=== PATIENT | female | born 1955 | race Two or more races ===

== ENCOUNTER 2025-04-27 08:20 | Outpatient (AMB) | payer OTHER, SELFPAY ==
--- OUTSIDE RECORDS SUMMARY | 2024-03-26 06:30 | XMS_ITS | Encounter Summary ---
Author Organization [employer] Address [address] [place] [address] Care Team Providers Care Radioactivity Technician Name Role Phone Niurka Aparicio MD Primary Care Prov ider Encounter Details Date Type Department Care Team (Late st Contact Info) Description 03/26/2024 7:30 AM EDT Hospital Encounter TH HISTORIC ENCOUNTERS EASTERN CONVERSION ONLY Darrin Leyva DO [address] [facility] [address] [place] [address] Social History Tobacco Use Types Packs/Day Years Used Date Smoking Tobacco: Never Smokeless Tobacco: Never Alcohol Use Standard Drinks/Week Comments No 0.8 (1 standard drink = 0.6 oz p ure alcohol) rarely Housing Instability Answer Date Recorde d Are you worried that in the next 2 months you may not have stable housing? No 12/07/2024 Food Access & Nutrition Answer Date Rec orded Do you have access to a vari ety of food including fruits and vegetables? Yes 12/07/2024 Access to Healthcare Answer Date Record ed Within the last 3 months, ho w many times did you visit the emergency department for your medical care? 1 12/07/2024 Health Literacy Answer Date Recorded How often do you need to hav e someone help you when you read instructions, pamphlets, or other written material from your doctor or pharmacy? Never 12/07/2024 Caregiver: How often do you need to have someone help you when you read instructions, pamphlets, or other written material from your doctor or pharmacy? Not on file 12/07/2024 Financial Risk Answer Date Recorded How hard is it for you to pa y for the very basics like food, housing, medical care, and air conditioning / heating? Not very hard 12/07/2024 Transportation Answer Date Recorded Has the lack of transportati on kept you from meetings, work, or from getting things needed for daily living? No Has the lack of transportati on kept you from medical appointments or from getting medications? No 12/07/2024 Social Isolation Answer Date Recorded How often do you feel lonely or isolated from th ose around you? Never 12/07/2024 Food Risk Answer Date Recorded Within the past 12 months we worried whether our food would run out before we got money to buy more. Never true 12/07/2024 Within the past 12 months th e food we bought just didn't last and we didn't have money to get more. Never true 12/07/2024 Dependent Care Answer Date Recorded Do you need help finding or paying for care for your loved ones. For example, child caregiver or elderly care for an older adult? No 12/07/2024 Education Answer Date Recorded Do you think completing more education or training, like finishing a GED, going to college, or learning a trade, would be helpful for you? No 12/07/2024 Employment and Income Answer Date Recor ded During the last four weeks, have you been actively looking for work? No 12/07/2024 Living Situation Answer Date Recorded What is your living situation? Unrecognized valu e 12/07/2024 Interpersonal Safety Answer Date Record ed Physical Abuse Unrecognized value 06/19/2024 Verbal Abuse Unrecognized value 06/19/2024 Comments No Sex and Gender Information Value Date Recorded Sex Assigned at Not on file Legal Sex Female 1:59 PM EST Gender Identity Not on file Sexual Orientation Not on file documented as of this encounter Plan of Treatment Upcoming Encounters Date Type Department Care Team (Late st Contact Info) Description 04/30/2025 2:00 PM EST Office Visit Adult Medicine - [place] [address] [place] [address] Niurka Aparicio MD [address] [place] [address] 08/05/2025 9:45 AM EST Office Visit Bariatric Surgery - [address] [place] [phone] Bijan Mcwilliams MD [address] [place] [address] documented as of this encounter Visit Diagnoses Not on filedocumented in this encounter Care Teams Radioactivity Technician Relationship Specialty Start Date End Date Niurka Aparicio MD [address] [place] [address] PCP - General Internal Medicine 06/03/12 documented as of this encounter
--- OUTSIDE RECORDS SUMMARY | 2025-04-26 07:03 | XMS_ITS | Encounter Summary ---
Author Organization [employer] Address [address] [place] [address] Care Team Providers Care Clinical Programmer Name Role Phone Niurka Aparicio MD Primary Care Prov ider Reason for Referral * Imaging (Routine) - Authorized Specialty Diagnoses / Procedures Referred By Contac t Referred To Contact Radiology Diagnoses Encounter for screening mammogram for breast cancer Procedures MG Mammo Digital Screening w Pete bilat [facility], Self Referral [facility] Referral ID Status Reason Start Date Expiration Date V isits Requested Visits Authorized [id number] Authorized 04/19/2025 04/19/2026 1 1 * Imaging (Routine) - Authorized Specialty Diagnoses / Procedures Referred By Contac t Referred To Contact Radiology Diagnoses Encounter for screening mammogram for breast cancer Procedures MG Mammo Digital Screening w Pete bilat [facility], Self Referral [facility] [place] Referral ID Status Reason Start Date Expiration Date V isits Requested Visits Authorized [id number] Authorized 04/19/2025 04/19/2026 1 1 Reason for Visit * Imaging (Routine) - Authorized Specialty Diagnoses / Procedures Referred By Contac t Referred To Contact Radiology Diagnoses Encounter for screening mammogram for breast cancer Procedures MG Mammo Digital Screening w Pete bilat [facility], Self Referral [facility] [place] Referral ID Status Reason Start Date Expiration Date V isits Requested Visits Authorized [id number] Authorized 04/19/2025 04/19/2026 1 1 Encounter Details Date Type Department Care Team (Latest Contact Info) Description 04/26/2025 7:03 AM EST - 04/26/2025 11:59 PM [facility] Hospital Encounter [facility] [address] [address] Encounter for screening mammogram for breast cancer Discharge Disposition: Home or Self Care Social History Tobacco Use Types Packs/Day Years [...] care for your loved ones. For example, manager child or elderly care for an older adult? [...] on file documented as of this encounter Last Filed Vital Signs Vital Sign Reading Time Taken Comments Blood Pressure - - Pulse - - Temperature - - Respiratory Rate - - Oxygen Saturation - - Inhaled Oxygen Concentration - - Weight 74.8 kg (165 lb) 04/26/2025 7:20 AM EST Height 165.1 cm (5' 5 ) 04/26/2025 7:20 AM EST Body Mass Index 27.46 04/26/2025 7:20 AM EST documented in this encounter Medications at Time of Discharge albuterol HFA (PROAIR HFA ; PROVENTIL HFA ; VENTOLIN HFA) 90 mcg/actuation inhaler INHALE 2 PUFFS INTO THE LUNGS FOUR TIMES DAILY NEEDED FOR COUGH OR WHEEZING 11/16/2022 cholecalciferol (VITAMIN D-3) 10 mcg (400 unit) tablet Take 1 tablet (400 Units total) by mouth 1 (one) time each day. clonazePAM (KlonoPIN) 0.5 mg tablet Take 1 tablet (0.5 mg total) by mouth. 11/29/2020 diclofenac (VOLTAREN) 1 % topical gel Apply 4 g topically. 09/11/2023 docusate sodium (Colace) 100 mg capsule Take 1 capsule (100 mg total) by mouth. 07/17/2017 fluticasone propionate (FLONASE) 50 mcg/actuation nasal spray Administer 1 spray into each nostril 1 (one) time each day. 06/05/2022 labetaloL (NORMODYNE) 100 mg tablet Take 1 tablet (100 mg total) by mouth 2 (two) times a day. 180 tablet 1 10/09/2024 lisinopriL (PRINIVIL,ZESTRIL) 20 mg tabletIndications: Primary hypertension Take 1 tablet (20 mg total) by mouth 1 (one) time each day. 90 each 1 2025 6 ondansetron (ZOFRAN) 4 mg tablet Take 1 tablet (4 mg total) by mouth every 8 (eight) hours if needed. 03/12/2024 oxyCODONE-acetamin ophen (PERCOCET) 5-325 mg per tablet Take 1 tablet by mouth every 6 (six) hours if needed for severe pain. pantoprazole (PROTONIX) 40 mg EC tablet Take 1 tablet (40 mg total) by mouth 1 (one) time each day before breakfast. Do not crush, chew, or split. 90 tablet 03/23/2025 rOPINIRole XL (REQUIP XL) 2 mg 24 hr tablet Take 1 tablet (2 mg total) by mouth. semaglutide (Ozempic) 2 mg/dose (8 mg/3 mL) injection penIndications:Ove r weight Inject 2 mg under the skin every 7 (seven) days. 3 mL 5 02/02/2025 6 zolpidem (AMBIEN) 10 mg tablet Take 1 tablet (10 mg total) by mouth. documented as of this encounter Discharge Disposition Disposition Code Departure Means Destination Home or Self Care documented in this encounter Plan of Treatment Upcoming Encounters Date Type Department Care Team (Late st Contact Info) Description 04/30/2025 2:00 PM EST Office Visit Adult Medicine - [place] [address] [place] [phone] Niurka Aparicio MD [address] [place] [address] 08/05/2025 9:45 AM EST Office Visit Bariatric Surgery - [address] [address] Bijan Mcwilliams MD [address] [place] [phone] documented as of this encounter Procedures Procedure Name Priority Date/Time Associated Diagnosis Comments MG MAMMO DIGITAL SCREENING W PETE BILAT Routine 04/26/2025 7:28 AM EST Encounter for screening mammogram for breast cancer documented in this encounter Results * MG Mammo Digital Screening w Pete bilat (04/26/2025 7:28 AM EST) Anatomical Region Laterality Modality Breast Bilateral Mammography 04/26/2025 7:39 AM EST Impressions 04/26/2025 8:34 AM EST No mammographic evidence of malignancy. No suspicious interval change. A negative mammogram in the presence of a clinically suspicious palpable abnormality does not preclude the possibility of malignancy or alter the indications for biopsy. ASSESSMENT: BI-RADS 1: NEGATIVE RECOMMENDATION(S): 1: Routine screening mammogram BILATERAL in 1 year. [facility] [address], [address] -------- FINAL REPORT -------- Dictated By: Dionicio Gómez Dictated Date: 04/26/2025 07:39 ET Assigned Physician: Dionicio Gómez Reviewed and Electronically Signed By: Dionicio Gómez Signed Date: 04/26/2025 08:34 ET Workstation ID: [id number] Transcribed By: Self Edit Transcribed Date: 04/26/2025 07:50 ET Narrative 04/26/2025 8:34 AM EST EXAM: SCREENING MAMMOGRAPHY, BILATERAL HISTORY: SCREENING. Family history of breast cancer, sister diagnosed age 50. COMPARISON: 08/24/23, 07/11/22, 07/04/21 TECHNIQUE: Synthesized CC and MLO projections of each breast. Tomosynthesis of each breast in the CC and MLO projections. ADDITIONAL IMAGING: None Computer-aided detection was employed with the iCAD ProFound AI 3-D. TISSUE DENSITY: There are scattered areas of fibroglandular density. (BI-RADS category B) FINDINGS: RIGHT BREAST: No suspicious mass. No suspicious calcification. No distortion. No additional suspicious right breast findings LEFT BREAST: No suspicious mass. No suspicious calcification. No distortion. No additional suspicious left breast findings Procedure Note Dionicio Gómez MD - 04/26/2025 EXAM: SCREENING MAMMOGRAPHY, BILATERAL HISTORY: SCREENING. Family history of breast cancer, sister diagnosedage 50. COMPARISON: 08/24/23, 07/11/22, 07/04/21 TECHNIQUE: Synthesized CC and MLO projections of each breast.Tomosynthesis of each breast in the CC and MLO projections. ADDITIONAL IMAGING: None Computer-aided detection was employed with the [employer]phis Vape AI 3-D. TISSUE DENSITY: There are scattered areas of fibroglandular density.(BI-RADS category B) FINDINGS: RIGHT BREAST: No suspicious mass. No suspicious calcification. No distortion. Noadditional suspicious right breast findings LEFT BREAST: No suspicious mass. No suspicious calcification. No distortion. Noadditional suspicious left breast findings IMPRESSION: No mammographic evidence of malignancy. No suspicious interval change. A negative mammogram in the presence of a clinically suspicious palpableabnormality does not preclude the possibility of malignancy or alter theindications for biopsy. ASSESSMENT: BI-RADS 1: NEGATIVE RECOMMENDATION(S): 1: Routine screening mammogram BILATERAL in 1 year. [facility] location[facility] [address], [address] -------- FINAL REPORT -------- Dictated By: Dionicio Gómez Dictated Date: 04/26/2025 07:39 ET Assigned Physician: Dionicio Gómez Reviewed and Electronically Signed By: Dionicio Gómez Signed Date: 04/26/2025 08:34 ET Workstation ID: [id number] Transcribed By: Self Edit Transcribed Date: 04/26/2025 07:50 ET us Self Referral [facility] IMG BI PROCEDURES Final Resul t documented in this encounter Visit Diagnoses Diagnosis Encounter for screening mammogram for breast cancer documented in this encounter Additional Health Concerns Assessment Noted Time PHQ-9 Depression Total Score: 0 12/08/19 25 9:21 AM EDT documented as of this encounter Care Teams Clinical Programmer Relationship Specialty Start Date End Date Niurka Aparicio MD [address] [place] [address] PCP - General Internal Medicine 06/03/12 documented as of this encounter
[2025-04-27 08:24] VITALS: BMI 27.5
--- NOTE | 2025-04-27 08:24 | A.PHYSOV_ITS ---
Vital Signs 04/27/25 08:24 Height 5 ft 5 in Weight 165 lb BMI 27.5 Intake Visit Reasons: MRI followup Intake Note: 71 year old female who is here for her 1 month follow up x-rays of cervical and lumbar were ordered but only cervical was done. Her results are in chart Insulation Applicator Required: No Allergies No Known Allergies Allergy (Verified 04/27/25 08:26) HPI Comments Details: History of Present Illness The patient is a 70-year-old female presenting with persistent neck and lower back pain. She has been on oxycodone 5 mg four times a day as needed, which provides a 40 to 50% reduction in pain, improving her quality of life and allowi ng her to work. She reports muscle cramping in the lower extremities, which has improved with magnesium, vitamin B100 complex, CoQ10, and turmeric supplementation. Despite these interventions, cramps are still present but less frequent. The patient has experienced excellent results with sacroiliac joint injections. However, she is now experiencing increasing neck pain, right scapular and arm pain, with associated numbness and tingling in the right upper extremity. She has been performing physician-guided home cervical stretching exercises. Cervical spine x-rays from May 09, 2022, and updated x-rays from April 19, 2025, were reviewed, showing evidence of previous C5 through C7 anterior cervical discectomy and fusion with anterior plating, reversal of cervical lordosis, and a fractured screw at the C7 level. She was doing physician guided home exercises. Unfortunately continues to report persistent pain in her right arm. She also reports pain in her right shoulder with overhead activities. Right shoulder injections in the past provided good benefits. Neck and right arm pain is rated 8/10. We are in the process of getting her approved for repeat sacroiliac joint injections. Pain Description - Onset: Persistent neck and lower back pain - Quality: Pain reduced by 40 to 50% with medication - Location: Neck, lower back, right scapular, and arm - Radiation: Right scapular and arm pain - Exacerbating factors: Not explicitly mentioned - Relieving factors: Oxycodone, SI joint injections, supplements - Interference: Pain impacts quality of life and work ability Results - Imaging: Cervical spine x-rays from May 09, 2022, and April 19, 2025, showing C5 through C7 anterior cervical discectomy and fusion, reversal of cervical lordosis, and fractured screw at C7 [facility] Medical History (Updated 04/27/25 @ 09:08 by Darrin Leyva DO) Sacroiliac dysfunction Surgical History (Updated 04/27/25 @ 08:27 by Jordyn Gerber MA) H/O gastric sleeve (Unknown) Social History (Updated 04/27/25 @ 08:28 by Jordyn Gerber MA) Household Members: Spouse and None Alcohol intake: current Alcohol intake frequency: does not drink Patient Tobacco Use Status: Never used Tobacco Current occupational status: retired Review of Systems Narrative Review of Systems - Musculoskeletal: Reports persistent neck and lower back pain, right scapular and arm pain - Neurological: Reports numbness and tingling in the right upper extremity Right shoulder pain, denies change in bowel bladder habits, denies fever or chills, denies uncontrolled depression or suicidal ideation. Physical Exam Exam Exam: Physical Exam Patient appears to be in no acute distress, appropriately conversant and oriented. She was able to ambulate without antalgia. She was able to perform heel walk and toe walk. Neurologic examination of upper and lower extremities was nonfocal. Positive Dexter and Neer signs in the right shoulder. Spurling maneuver was positive on the right side. Lhermitte sign was negative. Patient demonstrated no upper motor neuron signs. SI provocative maneuvers were positive bilaterally including SI compression test, [place] and fibere signs. Dural tension signs were negative. She was able to perform heel walk and toe walk with support for balance. Vital Signs: BMI result Body Mass Index 27.5 Office Procedures AMB Shoulder Injection AMB Shoulder Injection Procedure Details: After informed consent was obtained, posterior aspect of the right shoulder was prepped with Betadine. 1.5 in 22 gauge hypodermic needle was introduced percutaneously and advanced into the subacromial area. After negative aspiration for blood total volume of 6 cc containing 40 mg of triamcinolone and 2% lidocaine was injected without resistance. Patient tolerated procedure very well without complications with excellent anesthetic response. Shoulder Injection - : Right All charges added?: Procedure code (CPT) selection complete Office Meds Kenalog 40 mg/mL suspension for injection Performing Provider: Darrin Leyva DO [place] [facility] [place] [facility] Administered by: Darrin Leyva DO on 04/27/25 09:00 Dose Route Admin Location Dispensed Lot Number Expiration Date [facility] Religion Instructor 40 mg intra-articular 1 mL [id number] [employer] Total Dispensed Waste 1 mL 0 % lidocaine (PF) 20 mg/mL (2 %) injection solution Performing Provider: Darrin Leyva DO Performing Location: [facility] Administered by: Darrin Leyva DO on 04/27/25 09:00 Dose Route Admin Location Dispensed Lot Number Expiration Date [facility] Religion Instructor 80 mg intra-articular 4 mL [id number] Total Dispensed Waste 4 mL 0 % Assessment & Plan Assessment & Plan (1) Cervical radiculitis: Code(s): M54.12 - Radiculopathy, cervical region Category: Medical (2) Neck pain: Code(s): M54.2 - Cervicalgia Category: Medical (3) Rotator cuff impingement syndrome of right shoulder: Code(s): M75.41 - Impingement syndrome of right shoulder Category: Medical (4) Sacroiliac dysfunction: Code(s): M53.3 - Sacrococcygeal disorders, not elsewhere classified Category: Medical (5) Sacroiliac inflammation: Code(s): M46.1 - Sacroiliitis, not elsewhere classified Category: Medical Plan Pain Management - Affect: Pain impacts quality of life positively with medication - Analgesia: Oxycodone 5 mg four times a day as needed, 40 to 50% pain reduction - Adverse Effects: Not explicitly mentioned - Activities of Daily Living: Able to work, improved quality of life - Aberrant Drug Related Behaviors: None reported Plan Patient was informed and verbally consented to the use of an ambient scribe for clinic note documentation during this visit. 1. Chronic Neck Pain The patient will continue with oxycodone 5 mg four times a day as needed for pain management, which has been effective in reducing pain by 40 to 50%. A cervical spine MRI has been ordered to further evaluate the cause of the increasing neck pain and associated symptoms. 2. Chronic Lower Back Pain The patient has experienced excellent results with sacroiliac joint injections, which will be considered for future management. 3. Muscle Cramps In Lower Extremities The patient will continue with magnesium, vitamin B100 complex, CoQ10, and turmeric supplementation, which have improved the frequency of cramps. 4. Right Scapular And Arm Pain The patient will undergo a cervical spine MRI to assess the cause of the right scapular and arm pain, along with numbness and tingling in the right upper extremity. Discussion Notes During the visit, we discussed the continuation of oxycodone for pain management, which has been effective. We also reviewed the need for a cervical spine MRI to further investigate the cause of the patient's neck and arm symptoms. The patient was informed about the benefits of ongoing supplementation for muscle cramps and the potential for future sacroiliac joint injections. Patient Instructions - Continue taking oxycodone as prescribed for pain management. - Maintain supplementation with magnesium, vitamin B100 complex, CoQ10, and turmeric. - Schedule and complete the cervical spine MRI as discussed. - Follow up for further evaluation and management based on MRI results. Orders: Orders MR cervical spine wo con Today M54.12 - Radiculopathy, cervical region, M54.2 - Cervicalgia AMB Shoulder Injection Today M75.41 - Impingement syndrome of right shoulder Coding Level of Care Code Est Pt Level 4 (12051) Complex EM visit Add On G2211 Diagnoses Cervical radiculitis M54.12 Neck pain M54.2 Rotator cuff impingement syndrome of right shoulder M75.41 Sacroiliac dysfunction M53.3 Sacroiliac inflammation M46.1 CPT Codes AMB Shoulder Injection - Hip/Bursa Injection - : Right ([id number])
--- OUTSIDE RECORDS SUMMARY | 2025-04-27 08:29 | XMS_ITS | Data Portability ---
Author Organization [facility], [facility] Address [address] [place] [address] Care Team Providers Care Studio Musician Name Role Phone HIM CCA OTHER BROOK LIM Primary Care Provider Assessment Encounter Date Assessment Date Assessment LastModified by Organization Details LastModified Time 10/15/2023 10/15/2023 I provided real -time medical direction via phone for this encounter and was available for additional phone-based assistance as needed. I have reviewed and agree with the Assessment and Plan as documented by the Bobbin Dumper. Patient given the opportunity to ask questions. Our service contacted for an assessment of: Chronic BACK pain As per above, patient with hx of chronic pain. No new or worsening red S&S. No new bowel/bladder symptoms. No new gait abnl. No new neurological signs, symptoms or deficits. Per emergency management consultant on the scene, VSS, non-toxic. Neuro grossly intact. No CKI and not on blood thinners. Has not taken NSAID today. Does take Percocet however has GI upset with this and feels nausea. Impression: Acute on chronic LBP Plan: Toradol 30 mg IM times one. F/u with PCP. Red flags to be discussed as to when to seek a higher level of care. We discussed the diagnostic uncertainty of home visits and the risk associated with this. In this case, the patient and I felt this to be an acceptable and reasonable amount of risk given the benefit of avoiding an ED visit. We discussed the need to seek care urgently/emerge ntly in the setting of any new or worsening serious symptoms Not available 10/15/2023 11:54:41 08/12/2024 08/12/2024 I provided real -time medical direction via phone for this encounter and was available for additional phone-based assistance as needed. I have reviewed and agree with the Assessment and Plan as documented by the Bobbin Dumper. Patient given the opportunity to ask questions. Our service contacted for an assessment of: Chronic right shoulder pain As per above, patient with hx of chronic right shoulder pain. No new or worsening red S&S. No new deficits. Per emergency management consultant on the scene, VSS, non-toxic. Neuro grossly intact. No CKI and not on blood thinners. Has not taken NSAID today Impression: Chronic right shoulder pain Plan: Toradol 30 mg IM times one. F/u with PCP. Red flags to be discussed as to when to seek a higher level of care. We discussed the diagnostic uncertainty of home visits and the risk associated with this. In this case, the patient and I felt this to be an acceptable and reasonable amount of risk given the benefit of avoiding an ED visit. We discussed the need to seek care urgently/emerge ntly in the setting of any new or worsening serious symptoms Not available 08/12/2024 20:12:14 10/21/2024 10/21/2024 I have reviewed and agree with the Assessment and Plan as documented by the Bobbin Dumper. I provided real-time medical direction via phone for this encounter, and was available for additional phone based assistance as needed. I would add/emphasize: Pt seen for sinus congestion and non-prod cough since Saturday. AVSS and afebrile / well appearing. COVID and flu POC testing negative. Denies SOB, neck pain, fevers, sore throat. Reviewed evidence based recommended mgmt of early sinusitis w/ expectant monitoring and supportive care. recommended early f/u next week w/ PCP vs callback for persistent sxs as would consider abx if not improving once close to 1.5 weeks of sxs. Medic reviewed red flags that should prompt presentation to ED. pallfather Not available 10/21/2024 14:39:12 Plan of Treatment Reminders Order Date Submit Date Provider Last Modified By Organization Details Last Modified Time Details Appointments None recorded. Lab rapid flu (A+B) 2024 025 [facility], [address] [place] [address], [id number] 11:29:05 rapid SARS CoV 2 Ag, QL [place], respiratory specimen [address], [id number] 5 11:29:06 Referral None recorded. Procedures None recorded. Surgeries None recorded. Imaging None recorded. Medication Orders ketorolac 30 mg/mL (1 mL) injection solution 2024 025 [email or web address] [facility], [address] [place] [address], [id number], 5 20:11:17 ketorolac 30 mg/mL injection solution 2023 024 [email or web address] [facility], [address] [place] [address], [id number], 4 16:36:03 ketorolac 30 mg/mL injection solution 2023 024 [email or web address] Not available 4 17:14:17 ketorolac 30 mg/mL (1 mL) injection solution 2023 024 [email or web address] Not available 4 11:53:51 Patient TargetsNo targets recorded. Patient InstructionsNo instructions recorded. Reason for Referral None Reported. Results Created Date Observation Date Name Description Value Unit Range Abnormal Flag Note LastModifiedBy Organization Detail LastModifiedTime Result Notes None recorded. Medical Equipment None Reported. Allergies No known drug allergies Medications Name Sig Start Date Stop Date Status Note LastModified by Organization Details LastModified Time azithromycin 250 mg tablet active Not Available Not Available Not Available lisinopril 20 mg tablet TAKE 1 TABLET BY MOUTH TWICE DAILY active Not Available Not Available No t Available clonazepam 0.5 mg tablet TAKE 1/2 TO 1 TABLET BY MOUTH AT BEDTIME NEEDED active Not Available Not Available No t Available hydroxyzine pamoate 50 mg capsule TAKE 2 CAPSULES BY MOUTH AT BEDTIME active Not Available Not Available No t Available topiramate 25 mg tablet TAKE 1 TABLET BY MOUTH DAILY active Not Available Not Available Not Available oxycodone-ac etaminophen 5 mg-325 mg tablet TAKE 1 TABLET BY MOUTH EVERY 8 HOURS NEEDED active Not Available Not Available No t Available prednisolone acetate 1 % eye drops,suspen juan SHAKE LIQUID AND INSTILL 1 DROP IN BOTH EYES FOUR TIMES DAILY active Not Available Not Available No t Available dicyclomine 20 mg tablet active Not Available Not Available Not Available dexamethason e 2 mg tablet TAKE 1 TABLET BY MOUTH TWICE DAILY WITH MEALS FOR 10 DAYS active Not Available Not Available No t Available pantoprazole 40 mg tablet,delay ed release TAKE 1 TABLET BY MOUTH DAILY active Not Available Not Available Not Available ergocalcifer ol (vitamin D2) 1,250 mcg (50,000 unit) capsule TAKE 1 CAPSULE BY MOUTH 1 TIME A WEEK active Not Available Not Available Not Available zolpidem 10 mg tablet TAKE 1 TABLET BY MOUTH AT BEDTIME active Not Available Not Available No t Available labetalol 100 mg tablet TAKE 1 TABLET BY MOUTH TWICE DAILY active Not Available Not Available No t Available albuterol sulfate HFA 90 mcg/actuatio n aerosol inhaler INHALE 2 PUFFS INTO THE LUNGS FOUR TIMES DAILY NEEDED FOR COUGH OR WHEEZING active Not Available Not Available No t Available ondansetron 4 mg disintegrati ng tablet active Not Available Not Available No t Available fluticasone propionate 50 mcg/actuatio n nasal spray,suspen juan SHAKE LIQUID AND USE 1 SPRAY IN EACH NOSTRIL DAILY active Not Available Not Available No t Available tobramycin 0.3 %-dexamethas one 0.1 % eye drops,suspen juan SHAKE LIQUID AND INSTILL 1 DROP IN BOTH EYES FOUR TIMES DAILY active Not Available Not Available No t Available bupropion HCl SR 200 mg tablet,12 hr sustained-re lease TAKE 1 TABLET BY MOUTH EVERY MORNING WITH MEALS active Not Available Not Available N ot Available pregabalin 50 mg capsule TAKE 1 CAPSULE BY MOUTH TWICE DAILY active Not Available Not Available No t Available pregabalin 100 mg capsule TAKE 1 CAPSULE BY MOUTH TWICE DAILY active Not Available Not Available No t Available ropinirole ER 2 mg tablet,exten ded release 24 hr TAKE 1 TABLET BY MOUTH AT BEDTIME active Not Available Not Available No t Available ketorolac 30 mg/mL injection solution Inject 1 mL by intravenous route. 2023 active Not Available Not Available Not Shayai lable Vitals Date Recorded Body height Body weight Heart rate Oxygen saturation Oxygen saturation in Arterial blood by Pulse oximetry Respiratory rate Body temperature Systolic And Diastolic Provider Name and Address Organization Details Last Updated DateTime 5 172.72 cm 42217.8 g 74 /min 98 % 98 % 14 /min 97.8 [degF] 156/88 mm[Hg] Not Available [facility] - production 5 20:05:30 Date Recorded Body weight Body height Heart rate Oxygen saturation Oxygen saturation in Arterial blood by Pulse oximetry Respiratory rate Systolic And Diastolic Provider Name and Address Organization Details Last Updated DateTime 4 24859.1 12 g 165.1 cm 76 /min 100 % 100 % 16 /min 187/77 mm[Hg] Not Available [facility] 4 11:52:55 Date Recorded Respiratory rate Body weight Body height Heart rate Oxygen saturation Oxygen saturation in Arterial blood by Pulse oximetry Body temperature Systolic And Diastolic Provider Name and Address Organization Details Last Updated DateTime 4 16 /min 33161.1 12 g 165.1 cm 72 /min 99 % 99 % 98.4 [degF] 170/90 mm[Hg] Not Available [facility] 4 17:12:35 Date Recorded Body temperature Heart rate Oxygen saturation Oxygen saturation in Arterial blood by Pulse oximetry Respiratory rate Systolic And Diastolic Provider Name and Address Organization Details Last Updated DateTime 5 98.7 [degF] 81 /min 99 % 99 % 18 /min 164/98 mm[Hg] Not Available [facility] 5 10:32:21 Date Recorded Respiratory rate Heart rate Body temperature Body height Oxygen saturation Oxygen saturation in Arterial blood by Pulse oximetry Body weight Systolic And Diastolic Provider Name and Address Organization Details Last Updated DateTime 4 14 /min 72 /min 98.4 [degF] 162.56 cm 96 % 96 % 00252.8 g 136/82 mm[Hg] Not Available [facility] 4 16:33:18 Social History None recorded. Functional Status None recorded. Mental Status None recorded. Family History Nothing Reported. Medical History No medical history recorded. Gynecological HistoryNo gynecological history recorded. Obstetrics History GPAL:G 0 P 0 0 0 0 Past Encounters Encounter ID Performer Location Encounter Start Date Encounter Closed Date Diagnosis/Indication Diagnosis SNOMED-CT Code Diagnosis ICD10 Code Diagnosis IMO Codes Diagnosis Note [id number] Olman Clemons MD [facility] [address] [place] [phone] 03/16/2022 18:05:07 03/16/2022 18:09:29 [id number] Roxana Rivas MD [facility] [address] [place] [phone] 0 10/15/2023 11:52:53 10/15/2023 20:01:58 Chronic low back pain 633111058 M54.50 [id number] Shavon Leal MD [facility] [address] [place] [phone] 0 10/16/2023 17:12:26 10/17/2023 11:17:57 Low back pain 754900285 M54.50 68 year old female being evaluated for low back pain for the last 3 days. Patient tweaked her back and had an [facility] visit the following day, at which time she was given toradol with a few hours of relief, and requesting another dose today. Patient taking home oxycodone and tylenol, nsaids bother her stomach. Has topicals and heating pads as well. No bowel/blad andrei dysfunctio n or gait abnormalit ies, able to do her normal activities although bathing and dressing. are painful. Exam notable for normal vital signs and grossly normal neurologic exam. Presentati on consistent with lumbar strain without concerning features warranting urgent imaging. IM toradol given again today, encouraged outpatient FU to discuss additional work up and PT referral. I have reviewed and agree with the assessment and plan as documented by the emergency management consultant. I provided real-time medical direction for this encounter and was immediatel y available to provide additional phone-base d assistance as needed. We discussed the diagnostic uncertaint y of home visits and associated risks. We discussed the need to seek care urgently/e mergently in the setting of any new or worsening symptoms. [id number] Roxana Rivas MD [facility] [address] [place] [address] [phone] 0 03/10/2024 21:25:50 06/29/2024 21:51:35 Sialoadenitis [id number] K11.20 [id number] BERTIN MADDOX MD [facility] [address] [place] [address] [id number] 0 04/01/2024 16:33:16 04/01/2024 21:30:51 Low back pain 726441193 M54.50 Evaluation in the field was performed by my emergency management consultant colleague, as noted above, I provided real-time direction and supervisio n for this visit. The evaluation revealed a 69-year-ol d female being seen for low back pain. The patient has chronic back pain and was undergoing an MRI today when she twisted her back while getting off the machine. She has oxycodone at home but avoids taking it due to constipati on. She has not taken any Tylenol. NSAIDs upset her stomach. The patient also uses topicals and heating pads. She denies bowel or bladder dysfunctio n, and there are no gait abnormalit ies. Has had good results with Toradol in the past . Last time she received Toradol by us was October 15 . The patient is not on any blood thinners and denies a history of GI bleeding or kidney disease. Vital signs: StableNeur ologic exam: Grossly normalAlle rgies: Reviewed Impression :Acute on chronic lower back pain Plan:Her presentati on is consistent with lumbar strain, without concerning features warranting further emergent interventi on.-Ketoro lac 30 mg IV administer ed x1.-The patient was advised not to take any NSAIDs until at least tomorrow.- Advised to continue using Tylenol, and a heating pad. May take Oxycodone if pain severe and increase fiber in her diet.-Red flags were discussed with the patient. Primary care, consider__ _ Dispositio n:We discussed the diagnostic uncertaint y of home visits and the risk associated with this. In this case, the patient and I felt this to be an acceptable and reasonable amount of risk given the benefit of avoiding an ED visit. We discussed the need to seek care urgently/e mergently in the setting of any new or worsening serious symptoms, particular ly worsening pain, weakness, saddle anesthesia , incontinen ce of bladder or bowel, decreased strength, difficulty ambulating , fever, chills, chest pain (CP), shortness of breath (SOB), or any other concerns. [id number] Roxana Rivas MD [facility] [address] [place] [address] [id number] 0 08/12/2024 20:05:28 08/13/2024 00:31:12 Pain of shoulder region [id number] M25.519 [id number] Ethan Gusman MD [facility] [address] [place] [address] [id number] 0 10/21/2024 10:32:14 10/21/2024 18:03:20 Congestion of nasal sinus 03953542 R09.81 [id number] Health Concerns Section Related Observation LastModified by Organization Detai ls LastModified Time None Recorded Concern Status LastModified by Organization Details LastModified Time None Recorded Advance Directives Directive None Recorded Payers Insurance Date Sequence Insurance Name Policy Number Policy Batista Covered Member ID Batista Member ID Guarantor Name 06/29/2024 1 [facility] - DOS PRIOR TO 2022 - DUAL ELIGIBLE (MEDICARE REPLACEMENT/AD VANTAGE - HMO) Zaira Montiel [id number] Zaira Montiel 10/21/2024 1 [facility] - DOS ON OR AFTER 2022 - DUAL ELIGIBLE - LONG TERM OPTIONS AND ONE CARE (MEDICARE REPLACEMENT/AD VANTAGE - HMO) Zaira Montiel [id number] Zaira Montiel Notes Date Note Type Note Provider Name and Address Organization Details Recorded Time 10/15/2023 text/html [facility] Nurse Triage Notes (Juan Haider): Reason For Request: Pt reporting twisting her back in which she is experiencing back pain>unable to walk straight due to pain and describes that its as if something is stretching from her backside towards the front Chief Complaints: Pain PMH: Hypertension Allergies: No Known Comments: Presiding Steward verified the member's name//address and phone number. Education provided on the response time and the member was advised to monitor reported s/s and seek emergency treatment if needed.Member reports reports lower back pain -Reports twisting wrong. Increased pain with ambulation - Member is requesting pain management options - Concerns expressed and ER treatment was declined. ...................... ...................... ...................... ...................... ...................... ...................... ......... Bobbin Dumper Note From Eric Rashid: Pt reports t wisting her back when trying to pick something up yesterday. Pt took a Percocet which upset her stomach. Pt requesting IM ketorolac. Pt does not have any contraindications for ketorolac. [facility] contacted and pt treated with ketorolac 30 mg IM, left deltoid. Pt advised to f/u with PCP and to seek emergent medical care for new or worsening sx, which are reviewed with her. ...................... ...................... ...................... ...................... ...................... ...................... ......... Disposition: Fulfilled Roxana Rivas MD [address] [place] [address],[address], [place], [phone], [place] 10/15/2023 11:54:58 10/16/2023 text/html [facility] Nurse Triage Notes (Portia Weeks): Chief Complaints: Pain PMH: Hypertension Allergies: Unknown Comments: Chronic lower back pain. [facility] visit yesterday for same chronic pain, received Toradol injection with relief. Today member reports right lower back pain wrapping around to right lower abdomen. No acute injuries reported. ...................... ...................... ...................... ...................... ...................... ...................... ......... Bobbin Dumper Note From Federico Amos: [facility] visit for female patient with back pain. pt presents conscious and alert. Pt reports 2 days ago bending and tweaking her back. Some history of chronic lower back pain with reported herniated discs. Pt has been taking her previously prescribed percocet with minimal help with pain. Pt has also tried topical analgesics. No reported follow up with PCP yet. No external signs of injury on exam. Reported tenderness in right lumbar but nothing noted on palpation or suggestive of muscle spasm. V/S taken. Pt afebrile. Consulted with [facility] Dr. Leal who prescribed 30 mg IM toradol and encouraged pt to follow up with PCP. Reviewed red flags for ED. Pt education provided. ...................... ...................... ...................... ...................... ...................... ...................... ......... Disposition: Fulfilled Shavon Leal MD [address] [place] [address],[address], [place], [phone] [place] 10/16/2023 18:48:25 04/01/2024 text/html ROS as noted in the [facility] Nurse Triage Notes (Elsie Landaverde): Reason For Request: PT requesting help with pain for lower back, right side Chief Complaints: Pain PMH: Hypertension Allergies: No Known Pain Assessment: Level 10 out of 10 Comments: Presiding Steward verified the member's name//address and phone number. Member reports 10/10 lower back pain on the R side. Pt reports ongoing issues w/ pain control because she is trying to avoid taking percocet. Member rates baseline pain to be 6-7/10 pain. Reports that she has taken IV Toradol before w/ +effect. Pt reports pain to be affecting ambulation, +ROM in all limbs per pt.Reports issues w/ constipation when taking percocet. No issues at this time. Denies fevers, chest pain or SOB. Education provided on the response time and the member was advised to monitor reported s/s and seek emergency treatment if needed. ...................... ...................... ...................... ...................... ...................... ...................... ......... Bobbin Dumper Note From Troy Maurer: Patient alert and oriented. Patient answers the door with a slow steady gait. Patient complains of right lower back pain acute on chronic. Patient states she s had pain for years, but it got worse today when she twisted while at the hospital having an MRI. Patient denies numbness or tingling. Patient denies any urinary or other complaints. Patient says she had kidney function test about six months ago, was normal. Patient denies bleeding or anticoagulation.Patien t pink warm dry secondary exam unremarkable. [facility] orders Toradol 30 mg IM. Administered is noted without complication. Red flags, patient education discussed. ...................... ...................... ...................... ...................... ...................... ...................... ......... Disposition: Stormy MADDOX MD [address] [facility],[address], [place], [phone], [facility] 04/01/2024 17:27:09 08/12/2024 text/html [facility] Nurse Triage Notes (Marco A Seema): Reason For Request: pt is experiencing pain in both shoulders Denies: Worst Headache of life New onset of vision loss Sudden onset -unilateral weakness/gait disturbance Fall with head strike and altered LOC New onset of Slurred speech or difficulty finding words Sudden Mental status changes Head pain with fever chills and neck pain Seizure activity Chief Complaints: Back Pain PMH: Hypertension PMH Reviewed at 08/12/2024: Allergies Reviewed at 08/12/2024:04 Comments: Patient calling in to place a referral, identified via name and . Patient with acute on chronic bilateral shoulder pain, in which she received injections for, however, does not have an appt until next month. Patient reports pain is worse in her right shoulder than her left one, she can move her neck without difficulty, but is tense on the right side. Patient denies neck pain, no pain/numbness or tingling down arms, no headache. She has not taken any OTC medications, no heat or ice. She would like to be evaluated for pain management. ...................... ...................... ...................... ...................... ...................... ...................... ......... Bobbin Dumper Note From Troy Maurer: Patient alert and oriented complains of acute on chronic right shoulder pain. Patient complains of bilateral shoulder pain, right is worse. Patient denies recent trauma or any other pain or complaints. 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 Patient denies kidney or bleeding problems. Reports Tylenol does not help that much. Patient requests Toradol injection. Patient pink warm dry good CSM s in upper extremities. Secondary exam unremarkable. [facility] [place] [place] orders Toradol 30 mg IM. Administered as ordered using five rights without complication. Patient appreciative a visit, red flags, patient education discussed. [facility] Medication Orders: ketorolac 30 mg/mL (1 mL) injection solution: Administered ...................... ...................... ...................... ...................... ...................... ...................... ......... [facility] Consulted: Roxana Rivas ...................... ...................... ...................... ...................... ...................... ...................... ......... Disposition: Fulfilled Roxana Rivas MD [address] [place] [address],[address], [place], [phone], [place] 08/12/2024 20:42:23 10/21/2024 text/html [facility] Nurse Triage Notes (Leatha Mak): Reason For Request: Patient thinks she has a Sinus Infection. Patient Reports: Cough, fever greater than 2 days ; Cough Denies: Increased work of breathing/labored with or without fever Unable to speak in full sentences without distress Discoloration of skin -cyanosis Needs to sleep sitting up, can t catch breath Shortness of breath in setting of confusion History of asthma, increased use of inhaler COPD Sputum increase Shortness of breath with exertion Pain with inspiration Chief Complaints: Common Cold PMH: Hypertension, Chronic Pain PMH Reviewed at 10/21/2024:19 Allergies Reviewed at 10/21/2024:19 Comments: 69 y.o female complains of Common Cold Pt has been having symptoms since Saturday but has been getting worse. Pt has a dry cough, non-productive, denies fever/ chills/ nausea/ vomiting. She does have body aches, mainly on the back and mild Headaches. She has been taking OTC meds, Flonase, Mucinex, Benadryl, and has not fully helped. She denies any sob . She does not have asthma/ COPD . She has had sick contact , her daughter was sick . She would like pain medication for her back as well I provided information on the mobile health provider response time and advised the patient and/or caregiver to monitor reported signs and symptoms. I discussed the warning signs of when to seek emergency care. [employer] Information for [employer] Dariusz Syed [employer] Legal Name: [employer]. Address: [address] [place] [address], [place] Operator: Junajose Arizmendi MD CLIA No.: [id number] [employer] POC Test Results from Dariusz العراقي Rapid COVID antigen (10:30:30) COVID: - Attachments uploaded as part of this test result can be found under Documents section. Rapid influenza antigen (10:30:30) Flu: - Attachments uploaded as part of this test result can be found under Documents section. ...................... ...................... ...................... ...................... ...................... ...................... ......... [employer] Note From Dariusz العراقي: Encountered patient conscious, alert and ambulatory. Patient reports since 10/19/24 she has been experiencing sinus pressure a non-productive cough and nasal discharge. Patient additionally reports that she suffers from yearly sinus infections, and her current symptoms are reminiscent of her previous infection. Patient denies fevers, chills, shortness of breath and chest pain. Covid and flu swabs performed, both resulted negative; [facility] notified. Skin warm, dry and of appropriate color for ethnicity. Head and neck, free of trauma and edema.-JVD. Breath sounds present, clear and equal bilaterally. Abdomen is soft, non-tender, and non-distended. Extremities are free of trauma and edema. [facility] contacted: [facility] states that time from symptoms until appointment has not been long enough to warrant the use of antibiotics as the origin of infection has not been determined between bacterial or viral. [facility] states that usually within 1 to 2 weeks is when treatment with antibiotics are warranted as most sinus infections can resolve on their own with supportive care. Patient was encouraged to attempt to schedule an appointment with her primary care or to contact [facility] for a subsequent visit if her symptoms do not resolve. Patient verbalizes understanding of the plan and states she is comfortable with remaining home at this time. [facility] Lab Orders: rapid flu (A+B): Performed rapid SARS CoV 2 Ag, QL IA, respiratory specimen: Performed ...................... ...................... ...................... ...................... ...................... ...................... ......... [facility] Consulted: Ethan Gusman ...................... ...................... ...................... ...................... ...................... ...................... ......... Disposition: Fulfilled Ethan Gusman MD [address] [place] [address],[address], [place], [id number], RUDDY MARQUES 10/21/2024 14:39:21 OBGyn Episode No OBEpisode recorded.
--- OUTSIDE RECORDS SUMMARY | 2025-04-27 08:29 | XMS_ITS | Clinical Summary ---
Author Organization [address] [place] [address] [place] [phone] Phone Care Team Providers Care Retention Specialist Name Role Phone Niurka Aparicio MD Primary Care Prov ider Allergies Active Allergy Reactions Criticality Noted Date Comments Pollen Extracts Runny nose Medium 03/26/2017 Seasonal Medications albuterol HFA (PROAIR HFA ; PROVENTIL HFA ; VENTOLIN HFA) 90 mcg/actuation inhaler INHALE 2 PUFFS INTO THE LUNGS FOUR TIMES DAILY NEEDED FOR COUGH OR WHEEZING 3 Active clonazePAM (KlonoPIN) 0.5 mg tablet Take 1 tablet (0.5 mg total) by mouth. 1 Active diclofenac (VOLTAREN) 1 % topical gel Apply 4 g topically. 4 Active docusate sodium (Colace) 100 mg capsule Take 1 capsule (100 mg total) by mouth. 8 Active fluticasone propionate (FLONASE) 50 mcg/actuation nasal spray Administer 1 spray into each nostril 1 (one) time each day. 2 Active ondansetron (ZOFRAN) 4 mg tablet Take 1 tablet (4 mg total) by mouth every 8 (eight) hours if needed. 4 Active zolpidem (AMBIEN) 10 mg tablet Take 1 tablet (10 mg total) by mouth. Active rOPINIRole XL (REQUIP XL) 2 mg 24 hr tablet Take 1 tablet (2 mg total) by mouth. Active labetaloL (NORMODYNE) 100 mg tablet Take 1 tablet (100 mg total) by mouth 2 (two) times a day. 180 tablet 1 Active cholecalciferol (VITAMIN D-3) 10 mcg (400 unit) tablet Take 1 tablet (400 Units total) by mouth 1 (one) time each day. Active oxyCODONE-acetami nophen (PERCOCET) 5-325 mg per tablet Take 1 tablet by mouth every 6 (six) hours if needed for severe pain. Active lisinopriL (PRINIVIL,ZESTRIL ) 20 mg tabletIndications :Primary hypertension Take 1 tablet (20 mg total) by mouth 1 (one) time each day. 90 each 1 5 07/27/19 26 Active semaglutide (Ozempic) 2 mg/dose (8 mg/3 mL) injection penIndications:Ov er weight Inject 2 mg under the skin every 7 (seven) days. 3 mL 5 5 08/01/19 26 Active pantoprazole (PROTONIX) 40 mg EC tablet Take 1 tablet (40 mg total) by mouth 1 (one) time each day before breakfast. Do not crush, chew, or split. 90 tablet 5 Active Hospital, Clinic, or Other Facility Administered Medication Ordered Dose Route Frequency Start Date End Date Status cyanocobalamin (VITAMIN B-12) injection 1,000 mcgIndications:Low vitamin B12 level 1000 mcg IM Every 3 months 2025 01/23/2026 Act eliel Active Problems Problem Noted Date Diagnosed Date Neck pain 10/30/2024 Assessment & Plan (10/30/2024 5:49 PM EDT): Ms. Sylwia jacome was referred after x-rays to workup right-sided upper cervical pain that does not radiate down the arms showed fractured screws. She did very well after her previous cervical fusion and does not report any radiating arm symptoms. Her exam is benign and she has great range of motion. Her hardware remains well-positioned and there is no backing out of the fractured screws. The plate is stable and nothing can migrate. I would not revise any of this and she is satisfied with that plan. 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 Allergic rhinitis 02/13/2017 Cortical cataract of right eye 03/19/2014 Ocular hypertension 03/19/2014 Chronic bilateral low back pain with bilateral s ciatica 08/26/2012 Assessment & Plan (10/30/2024 5:51 PM EDT): Ms. Artis known has persistent lower back pain that has been going on for many years for which she has seen neurosurgical evaluation in the past and has had injections with Dr. Leyva as well as acupuncture and physical therapy. We discussed her previous MRI which was about 6 months ago that showed mainly degenerative facets but no central or foraminal stenosis. She is scheduled for an updated study in 2 weeks and it is possible that she has developed a synovial cyst or worsening arthropathy to create stenosis. I be happy to contact her once the images are available to see if there are other options for treatment. Hypertension 08/26/2012 Insomnia 08/26/2012 Panic attacks 07/11/2012 Plantar fasciitis, bilateral 07/11/2012 Encounters Date Type Department Care Team Description 04/26/2025 7:03 AM EST - 04/26/2025 11:59 PM EST [facility] [address] [place] [phone] Encounter for screening mammogram for breast cancer Discharge Disposition: Home or Self Care 04/19/2025 9:55 AM EST - 04/19/2025 11:59 PM EST Hospital Encounter [facility] Xray [address] [place] [phone] Cervicalgia; Radiculopathy, cervical region Discharge Disposition: Home or Self Care 02/10/2025 Telephone Adult Medicine [facility] [address] [place] [phone] Niurka Zhong MD 02/02/2025 9:00 AM EDT Office Visit Bariatric Surgery [facility] [address] [place] [phone] Bijan Mcwilliams MD Over weight (Primary Dx); Primary hypertension 2025 9:00 AM EDT Office Visit Adult Medicine [facility] [address] [place] [phone] Niurka Zhong MD Upper respiratory tract infection, unspecified type (Primary Dx); Primary hypertension; Low vitamin B12 level from Last 3 Months Immunizations Immunization Administration Dates Next Due Influenza Quadravalent, MDCK , 0.5ml, preservative free (Flucelvax) 6mo and older 05/12/2021,03/29/2020,04/14/2019 Influenza trivalent, 0.5mL ( Fluad) 65yo and older 05/07/2023,03/30/2022 Influenza trivalent, 0.5mL, preservative free (Fluarix; FluLaval; Fluzone) ages 6mo and older (Afluria) 3 years and older 03/08/2013 Influenza trivalent, with pr eservative (Fluzone; Afluria) 6mo and older 03/17/2024 Tdap Tetanus diptheria acell ular pertussis (Boostrix; Adacel) 7yo and older 12/10/2017 Zoster recombinant (Shingrix ) 19yo and older 06/23/2020,04/05/2020 Surgical History Surgery Date Site/Laterality Comments SECTION PROCEDURE: HISTORICAL DELIVERY; COMMENT: x 3 UPPER GASTROINTESTINAL ENDOSCOPY 09/30/2019 PROCEDURE: OR UPPER GI ENDOSCOPY PERFORMED; COMMENT: [facility]; 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 STOMACH SURGERY 03/09/2016 PROCEDURE: OR UNLISTED PROCEDURE STOMACH; COMMENT: Sleeve gastrectomy; Dr. Mcwilliams CARPAL TUNNEL RELEASE Bilateral PROCEDURE: HISTORICAL CARPAL TUNNEL REL FOOT SURGERY Right PROCEDURE: HISTORICAL FOOT SURGERY KNEE SURGERY Right PROCEDURE: HISTORICAL KNEE SURGERY; COMMENT: knee replacement NECK SURGERY PROCEDURE: HISTORICAL NECK SURGERY; COMMENT: fusion c5-c6 ABDOMINAL SURGERY PROCEDURE: HISTORICAL ABDOMINAL SURGERY; COMMENT: abdominoplasty TOTAL KNEE ARTHROPLASTY PROCEDURE: OR ARTHRP KNE CONDYLE&PLATU MEDIAL&LAT COMPARTMENTS OTHER SURGICAL HISTORY PROCEDURE: HISTORY OTHER; COMMENT: gastric bypass to modify failed sleeve Medical History Medical History Date Comments Panic attacks 07/11/2012 DX:Panic attacks Plantar fasciitis, bilateral 07/11/2012 DX: Plantar fasciitis, bilateral History of migraine 04/18/2020 DX:History o f migraine Asthma 06/19/2024 Gastroesophageal reflux dise ase without esophagitis 06/19/2024 Family History Medical History Relation Name Comments No Known Problems Aunt No Known Problems Brother No Known Problems Daughter x2 No Known Problems Father No Known Problems Maternal Grandfather No Known Problems Maternal Grandmother Pancreatic cancer Mother No Known Problems Other No Known Problems Paternal Grandfather Glaucoma Paternal Grandmother Breast cancer Sister 1 46y Liver cancer Sister 2 Brain cancer Sister 3 No Known Problems Son No Known Problems Uncle Autoimmune disease Neg Hx Blindness Neg Hx Cataracts Neg Hx Colon cancer Neg Hx Coronary artery disease Neg Hx Diabetes Neg Hx Heart attack Neg Hx Heart failure Neg Hx Hyperlipidemia Neg Hx Hypertension Neg Hx Macular degeneration Neg Hx Mental illness Neg Hx Prostate cancer Neg Hx Sleep apnea Neg Hx Strabismus Neg Hx Thyroid disease Neg Hx Relation Name Status Comments Aunt Brother Alive Daughter x2 Alive x2 Father Maternal Grandfather Maternal Grandmother Mother Other Paternal Grandfather Paternal Grandmother Sister 1 46y Sister 2 Sister 3 Son Alive Uncle Social History Tobacco Use Types Packs/Day Years Used Date Smoking Tobacco: Never Smokeless Tobacco: Never Tobacco Cessation:Counseling Given: Not Answered Alcohol Use Standard Drinks/Week Comments No 0.8 [...] for your loved ones. For example, child abuse worker or elderly care for an older adult? [...] on file Sexual Orientation Not on file Obstetrics History Para Term AB IAB SAB Ectopic Multiple Livin g Live Births 3 Last Filed Vital Signs Vital Sign Reading Time Taken Comments Blood Pressure 134/80 02/02/2025 9:13 AM EDT Pulse 84 02/02/2025 9:13 AM EDT Temperature 36.6 C (97.8 F) 02/02/2025 9:13 AM EDT Respiratory Rate 16 12/22/2024 12:20 PM EDT Oxygen Saturation 100% 12/22/2024 12:34 PM EDT Inhaled Oxygen Concentration - - Weight 74.8 kg (165 lb) 04/26/2025 7:20 AM EST Height 165.1 cm (5' 5 ) 04/26/2025 7:20 AM EST Body Mass Index 27.46 04/26/2025 7:20 AM EST Plan of Treatment Upcoming Encounters Date Type Department Care Team (Late st Contact Info) Description 04/30/2025 2:00 PM EST Office Visit Adult Medicine - [facility] [address] [place] [phone] Niurka Aparicio MD [address] [place] [address] 08/05/2025 9:45 AM EST Office Visit Bariatric Surgery - [place] [address] [place] [phone] Bijan Mcwilliams MD [address] [place] [phone] Health Maintenance Due Date Last Done Comments COVID-19 Vaccine ( season) 2025 Influenza Vaccine (#1) 2025 , 05/07/2023, 03/30/2022, Additional history exists Hypertension/CHF/CAD Annual BMP Blood Test 10/12/2025 10/12/2024, 01/06/2024, 01/06/2024 Medicare Annual Wellness Visit 12/07/2025 12/07/2024 Social Influencers of Health Screening 12/07/2025 12/07/2024 Falls Risk Assessment 12/22/2025 12/22/2024 Breast Cancer Screening 04/26/2027 04/26/20, 08/27/2023, 08/24/2023, Additional history exists DTaP,Tdap,and Td Vaccines (2 - Td or Tdap) 12/11/2027 12/10/2017 Cholesterol Screening (Lipid Panel) 10/12/2029 10/12/2024, 01/06/2024, 01/06/2024 Osteoporosis Screening (Bone Density Screening) 12/13/2032 12/13/2022, 11/21/2020, 07/28/2018 Colorectal Cancer Screening: Colonoscopy 06/19/2034 06/19/2024 Hepatitis C Screening Completed 04/14/2019 Zoster Vaccines Completed 06/23/2020, 04/05/2020 Pneumococcal Vaccine: 50+ Years Completed 05/27/2023 RSV Immunization Adult Patients Completed 05/27/2023 Depression Screening Completed 12/07/2024 HIB Vaccines Aged Out No longer eligi ble based on patient's age to complete this topic HPV Vaccines Aged Out No longer eligi ble based on patient's age to complete this topic Hepatitis A Vaccines Aged Out No long er eligible based on patient's age to complete this topic Hepatitis B Vaccines Aged Out No long er eligible based on patient's age to complete this topic IPV Vaccines Aged Out No longer eligi ble based on patient's age to complete this topic MMR Vaccines Aged Out No longer eligi ble based on patient's age to complete this topic Meningococcal ACWY Vaccine Aged Out N o longer eligible based on patient's age to complete this topic Meningococcal B Vaccine Aged Out No l onger eligible based on patient's age to complete this topic RSV Immunization Patients Under 20 months Aged Out No longer eligible based on patient's age to complete this topic Varicella Vaccines Aged Out No longer eligible based on patient's age to complete this topic Medical Devices Implanted Type Area Revenue Cycle Administrator Device Identifier Shelf Expiration Date Model / Serial / Lot Replacement Right: Knee Procedures Procedure Name Priority Date/Time Associated Diagnosis Comments MG MAMMO DIGITAL SCREENING W JONATHAN BILAT Routine 04/26/2025 7:28 AM EST Encounter for screening mammogram for breast cancer XR CERVICAL SPINE 4-5 VIEWS Routine 04/19/2025 10:15 AM EST Cervicalgia Radiculopathy, cervical region COMPREHENSIVE METABOLIC PANEL Routine 10/12/2024 2:08 PM EDT Primary hypertension LDL CHOLESTEROL, DIRECT Routine 10/12/2024 2:08 PM EDT Primary hypertension COLONOSCOPY Routine 06/19/2024 11:16 AM EST Screen for colon cancer RICH DEXA AXIAL SKELETON Routine 12/13/2022 5:15 PM EDT Encounter for screening for osteoporosis HM HEPATITIS C SCREENING Routine 04/14/2019 from Last 3 Months or Most Recently Relevant to Health Maintenance Results * MG Mammo Digital Screening w Jonathan bilat (04/26/2025 7:28 AM EST) Anatomical Region [...] year. [facility] [address], [address] -------- FINAL REPORT -------- Dictated By: Dionicio Gómez Dictated Date: 04/26/2025 07:39 ET Assigned Physician: Dionicio Gómez Reviewed and Electronically Signed By: Dionicio Gómez Signed Date: 04/26/2025 08:34 ET Workstation ID: [id number] Transcribed By: Self Edit Transcribed Date: 04/26/2025 07:50 ET Narrative 04/26/2025 8:34 AM EST EXAM: SCREENING MAMMOGRAPHY, BILATERAL HISTORY: SCREENING. Family history of breast cancer, sister diagnosed age 50. COMPARISON: 08/24/23, 07/11/22, 07/04/21 TECHNIQUE: Synthesized CC and MLO projections of each breast. Tomosynthesis of each breast in the CC and MLO projections. ADDITIONAL IMAGING: None Computer-aided detection was employed with the [employer] AI 3-D. TISSUE DENSITY: There are scattered [...] None Computer-aided detection was employed with the [employer] AI 3-D. TISSUE DENSITY: There are [...] year. [facility]amm[facility] location[facility] [address], [address] -------- FINAL REPORT -------- Dictated By: iDonicio Gómez Dictated Date: 04/26/2025 07:39 ET Assigned Physician: Dionicio Gómez Reviewed and Electronically Signed By: Dionicio Gómez Signed Date: 04/26/2025 08:34 ET Workstation ID: [id number] Transcribed By: Self Edit Transcribed Date: 04/26/2025 07:50 ET us Self Referral Sppl IMG BI PROCEDURES Final Resul t * XR Cervical Spine 4-5 Views (04/19/2025 10:15 AM EST) Anatomical Region Laterality Modality Spine, C-spine Radiographic Bridget ging 04/19/2025 12:3 4 PM EST Impressions 04/19/2025 12:39 PM EST Reversal of lordosis. Previous discectomy and interbody fusion and instrumentation. Fractured screws at the C7 level again demonstrated. -------- FINAL REPORT -------- Dictated By: Dionicio Gómez Dictated Date: 04/19/2025 12:34 ET Assigned Physician: Dionicio Gómez Reviewed and Electronically Signed By: Dionicio Gómez Signed Date: 04/19/2025 12:39 ET Workstation ID: [id number] Transcribed By: Self Edit Transcribed Date: 04/19/2025 12:34 ET Narrative 04/19/2025 12:39 PM EST EXAMINATION: CERVICAL SPINE CLINICAL INFORMATION: Neck pain COMPARISON: Lateral view 10/06/24 TECHNIQUE: Frontal, lateral, both oblique views, 3 attempted open-mouth views of the cervical spine FINDINGS: There has been discectomy and interbody fusion with anterior plate and screw instrumentation spanning from C5 through C7. The disc between C5 and C6 is not demonstrated consistent with osseous integration. There is some lucency at the C6/C7 disc similar to previous. The screws at C7 appear fractured similar to previous. There is bulky ventral osteophyte bridging anteriorly between C4 and C5. No significant prevertebral soft tissue swelling. There is reversal of expected lordosis apex C4/C5. There is no acute fracture. There is no significant bony foraminal narrowing. Despite 3 attempts the C1/C2 relationship is obscured. No suspicious abnormality in the apex of the chest Procedure Note Dionicio Gómez MD - 04/19/2025 EXAMINATION: CERVICAL SPINE CLINICAL INFORMATION: Neck pain COMPARISON: Lateral view 10/06/24 TECHNIQUE: Frontal, lateral, both oblique views, 3 attempted open-mouth views of thecervical spine FINDINGS: There has been discectomy and interbody fusion with anterior plate andscrew instrumentation spanning from C5 through C7. The disc between C5 andC6 is not demonstrated consistent with osseous integration. There is somelucency at the C6/C7 disc similar to previous. The screws at C7 appear fractured similar to previous. There is bulky ventral osteophyte bridging anteriorly between C4 and C5. No significant prevertebral soft tissue swelling. There is reversal of expected lordosis apex C4/C5. There is no acute fracture. There is no significant bony foraminal narrowing. Despite 3 attempts theC1/C2 relationship is obscured. No suspicious abnormality in the apex of the chest IMPRESSION: Reversal of lordosis. Previous discectomy and interbody fusion andinstrumentation. Fractured screws at the C7 level again demonstrated. -------- FINAL REPORT -------- Dictated By: Dionicio Gómez Dictated Date: 04/19/2025 12:34 ET Assigned Physician: Dionicio Gómez Reviewed and Electronically Signed By: Dionicio Gómez Signed Date: 04/19/2025 12:39 ET Workstation ID: [id number] Transcribed By: Self Edit Transcribed Date: 04/19/2025 12:34 ET us Darrin Leyva DO IMG XR PROCEDURES Final Result * LDL cholesterol, direct (10/12/2024 2:08 PM EDT) LDL Direct 100 <=100 mg/dL LAB CHEMISTRY METHOD 10/12/2024 9:20 PM EDT [facility] Blood Venous blood specimen / Unknown Venipuncture / Unknown 10/12/2024 2:08 PM EDT 10/12/2024 2:08 PM EDT us Niurka Aparicio MD LAB BLOOD ORDERABL ES Final Result [facility] [address] [place] [address], * (ABNORMAL) Comprehensive metabolic panel (10/12/2024 2:08 PM EDT) Sodium 140 133 - 145 mmol/L LAB CHEMISTRY METHOD 10/12/2024 9:21 PM [facility] Potassium 4.5 3.5 - 5.5 mmol/L LAB CHEMISTRY METHOD 10/12/2024 9:21 PM [facility] Chloride 108 96 - 110 mmol/L LAB CHEMISTRY METHOD 10/12/2024 9:21 PM [facility] CO2 27 21 - 32 mmol/L LAB CHEMISTRY METHOD 10/12/2024 9:21 PM [facility] Anion Gap 5 3 - 11 LAB CHEMISTRY METHOD 10/12/2024 9:21 PM [facility] Glucose 54(L) 70 - 100 mg/dL LAB CHEMISTRY METHOD 10/12/2024 9:21 PM [facility] BUN 17 5 - 25 mg/dL LAB CHEMISTRY METHOD 10/12/2024 9:21 PM [facility] Creatinine 0.72 0.50 - 1.10 mg/dL LAB CHEMISTRY METHOD 10/12/2024 9:21 PM [facility] eGFR 92 >=60 mL/min/1. 73m2 LAB CHEMISTRY METHOD 10/12/2024 9:21 PM [facility] Comment:Calculation based on the Chronic Kidney Disease Epidemiology Collaboration (CKD-EPI) equation refit without adjustment for race. BUN/Creatinine Ratio 23.6 LAB CHEMISTRY METHOD 10/12/2024 9:21 PM [facility] Calcium 9.7 8.5 - 10.5 mg/dL LAB CHEMISTRY METHOD 10/12/2024 9:21 PM [facility] AST (SGOT) 19 10 - 42 unit/L LAB CHEMISTRY METHOD 10/12/2024 9:21 PM [facility] ALT (SGPT) 45 10 - 60 unit/L LAB CHEMISTRY METHOD 10/12/2024 9:21 PM EDT [facility] Alkaline Phosphatase 105 42 - 121 unit/L LAB CHEMISTRY METHOD 10/12/2024 9:21 PM EDT [facility] Total Protein 6.4 6.0 - 8.0 g/dL LAB CHEMISTRY METHOD 10/12/2024 9:21 PM EDT [facility] Albumin 3.5 3.2 - 5.0 g/dL LAB CHEMISTRY METHOD 10/12/2024 9:21 PM EDT [facility] Total Bilirubin 0.4 0.0 - 1.4 mg/dL LAB CHEMISTRY METHOD 10/12/2024 9:21 PM EDT [facility] Blood Venous blood specimen / Unknown Venipuncture / Unknown 10/12/2024 2:08 PM EDT 10/12/2024 2:08 PM EDT us Niurka Aparicio MD LAB BLOOD ORDERABL ES Final Result [facility] [address] [place] [address], * COLONOSCOPY Anesthesia - MAC; [facility] ENDOSCOPY (06/19/2024 11:16 AM EST) Anatomical Region Laterality Modality Endoscopy 06/19/2024 10:4 5 AM EST Impressions 06/19/2024 11:17 AM EST - One 6 mm polyp in the sigmoid colon, removed with a cold snare. Resected and retrieved. - Hemorrhoids found on perianal exam. - The examination was otherwise normal on direct and retroflexion views. Recommendation: - - Discharge patient to home. - High fiber diet. - Continue present medications. - Await pathology results. - Repeat colonoscopy for surveillance based on pathology results. Narrative 06/19/2024 11:17 AM EST [facility] Patient Name: Florencio Montiel Procedure Date: 06/19/2024 10:45 AM Date of : 1955 Age: 69 Gender: Female Note Status: Finalized Attending MD: Justina Grant DO, [id number] Procedure Date No Time: 06/19/2024 Procedure: Colonoscopy Indications: Screening for colorectal malignant neoplasm Providers: Justina Grant DO Referring MD: Bryant Kern MD Medicines: Monitored Anesthesia Care Complications: No immediate complications. Estimated blood loss: Minimal. Estimated Blood Loss: Estimated blood loss was minimal. Procedure: Pre-Anesthesia Assessment: - - Prior to the procedure, a History and Physical was performed, and patient medications and allergies were reviewed. The patient is competent. The risks and benefits of the procedure and the sedation options and risks were discussed with the patient. All questions were answered and informed consent was obtained. Patient identification and proposed procedure were verified by the physician, the nurse, the anesthesiologist, the supervisor chemical and the systems testing laboratory technician in the pre-procedure area in the endoscopy suite. Mental Status Examination: alert and oriented. Airway Examination: normal oropharyngeal airway and neck mobility. Respiratory Examination: clear to auscultation. CV Examination: normal. Prophylactic Antibiotics: The patient does not require prophylactic antibiotics. Prior Anticoagulants: The patient has taken no anticoagulant or antiplatelet agents. ASA Grade Assessment: II - A patient with severe systemic disease. After reviewing the risks and benefits, the patient was deemed in satisfactory condition to undergo the procedure. The anesthesia plan was to use monitored anesthesia care (MAC). Immediately prior to administration of medications, the patient was re-assessed for adequacy to receive sedatives. The heart rate, respiratory rate, oxygen saturations, blood pressure, adequacy of pulmonary ventilation, and response to care were monitored throughout the procedure. The physical status of the patient was re-assessed after the procedure. After I obtained informed consent, the scope was passed under direct vision. Throughout the procedure, the patient's blood pressure, pulse, and oxygen saturations were monitored continuously.The Colonoscope was introduced through the anus and advanced to the cecum, identified by appendiceal orifice and ileocecal valve. The colonoscopy was performed without difficulty. The patient tolerated the procedure well. The quality of the bowel preparation was good. Findings: A 6 mm polyp was found in the sigmoid colon. The polyp was sessile. The polyp was removed with a cold snare. Resection and retrieval were complete. Estimated blood loss was minimal. Hemorrhoids were found on perianal exam. The exam was otherwise without abnormality on direct and retroflexion views. Procedure Code(s): --- Professional --- 02079, Colonoscopy, flexible; with removal of tumor(s), polyp(s), or other lesion(s) by snare technique Diagnosis Code(s): --- Professional --- Z12.11, Encounter for screening for malignant neoplasm of colon D12.5, Benign neoplasm of sigmoid colon K64.9, Unspecified hemorrhoids CPT copyright 2020 [employer]. All rights reserved. The codes documented in this report are preliminary and upon catapult and arresting gear officer review may be revised to meet current compliance requirements. JUSTINA Grant DO 06/19/2024 11:17:00 AM This report has been signed electronically.Justina Grant DO Number of Addenda: 0 Note Initiated On: 06/19/2024 10:45 AM Scope Withdrawal Time: 0 hours 6 minutes 2 seconds Scope In: 11:06:26 AM Scope Out: 11:14:50 AM Endoscopy Department at [facility] - [address] [place] [id number] Procedure Note Justina Grant DO - 06/19/2024 [facility] GI Patient Name: Florencio Montiel Procedure Date: 06/19/2024 10:45 AM Date of : 1955 Age: 69 Gender: Female Note Status: Finalized Attending MD: Justina Grant DO, [id number] Procedure Date No Time: 06/19/2024 Procedure: Colonoscopy Indications: Screening for colorectal malignant neoplasm Providers: Justina Grant DO Referring MD: Bryant Kern MD Medicines: Monitored Anesthesia Care Complications: No immediate complications. Estimated blood loss: Minimal. Estimated Blood Loss: Estimated blood loss was minimal. Procedure: Pre-Anesthesia Assessment: - - Prior to the procedure, a History and Physicalwas performed, and patient medications and allergieswere reviewed. The patient is competent. The risks and benefits of the procedure and the sedation optionsand risks were discussed with the patient. Allquestions were answered and informed consent was obtained. Patient identification and proposed procedure were verified by the physician, the nurse, the anesthesiologist, the supervisor chemical and thetechnician in the pre-procedure area in the endoscopy suite. Mental Status Examination: alert and oriented.Airway Examination: normal oropharyngeal airway and neck mobility. Respiratory Examination: clear to auscultation. CV Examination: normal. Prophylactic Antibiotics: The patient does not requireprophylactic antibiotics. Prior Anticoagulants: The patient has taken no anticoagulant or antiplatelet agents. ASA Grade Assessment: II - A patient with severesystemic disease. After reviewing the risks and benefits,the patient was deemed in satisfactory condition to undergo the procedure. The anesthesia plan was touse monitored anesthesia care (MAC). Immediately priorto administration of medications, the patient was re-assessed for adequacy to receive sedatives. The heart rate, respiratory rate, oxygen saturations, blood pressure, adequacy of pulmonary ventilation,and response to care were monitored throughout the procedure. The physical status of the patient was re-assessed after the procedure. After I obtained informed consent, the scope was passed under direct vision. Throughout theprocedure, the patient's blood pressure, pulse, and oxygen saturations were monitored continuously.The Colonoscope was introduced through the anus and advanced to the cecum, identified by appendiceal orifice and ileocecal valve. The colonoscopy was performed without difficulty. The patient tolerated the procedure well. The quality of the bowel preparation was good. Findings: A 6 mm polyp was found in the sigmoid colon. Thepolyp was sessile. The polyp was removed with a coldsnare. Resection and retrieval were complete. Estimatedblood loss was minimal. Hemorrhoids were found on perianal exam. The exam was otherwise without abnormality ondirect and retroflexion views. Procedure Code(s): --- Professional --- 45998, Colonoscopy, flexible; with removal of tumor(s), polyp(s), or other lesion(s) by snare technique Diagnosis Code(s): --- Professional --- Z12.11, Encounter for screening for malignantneoplasm of colon D12.5, Benign neoplasm of sigmoid colon K64.9, Unspecified hemorrhoids CPT copyright 2020 [employer]. All rights reserved. The codes documented in this report are preliminary and upon catapult and arresting gear officer reviewmay be revised to meet current compliance requirements. JUSTINA Grant DO 06/19/2024 11:17:00 AM This report has been signed electronically.Justina Grant DO Number of Addenda: 0 Note Initiated On: 06/19/2024 10:45 AM Scope Withdrawal Time: 0 hours 6 minutes 2 seconds Scope In: 11:06:26 AM Scope Out: 11:14:50 AM Endoscopy Department at [facility] - [address] [place] [phone] IMPRESSION: - One 6 mm polyp in the sigmoid colon, removed with a cold snare. Resected and retrieved. - Hemorrhoids found on perianal exam. - The examination was otherwise normal on directand retroflexion views. Recommendation: - - Discharge patient to home. - High fiber diet. - Continue present medications. - Await pathology results. - Repeat colonoscopy for surveillance based on pathology results. us Justina Grant DO GI~PROCEDURE ORDERABLES Final Re sult * RICH DEXA AXIAL SKELETON (12/13/2022 5:15 PM EDT) Anatomical Region Laterality Modality Mammography 12/13/2022 1:11 PM EDT Narrative 12/13/2022 5:15 PM EDT [facility] Diagnostic Imaging Department [address] [place] [id number] Patient: FLORENCIO MONTIELO.B./Age/Sex: 1955 - 67 - F Unit#: [id number] Location/Status: SPDIMAM/REG CLI Mnemonic[facility] Ordering Physician: JUDAH CHAN CNM Rich Dexa Axial Skeleton - 12/13/22 - [id number] Report Status:Signed History: Low estrogen state due to menopause. Comparison: 11/21/20 Findings: Bone densitometry is performed utilizing dual energy x-ray absorptiometry (DXA) in the [employer] unit. The lumbar spine and proximal femora are evaluated in the AP projection. The FRAX questionaire was completed. The results indicate low bone mass (osteopenia), with a right femoral neck T- score of -1.8. The Z score is -0.9, indicating bone mineral density within the range of normal for age. There has been no statistically significant change. The detailed DEXA report will be mailed to the referring physician's office. DualFemur FRAX: 10-year Probability of Fracture: Major Osteoporotic 5.4 percent Hip 0.7 percent. IMPRESSION: Osteopenia. [id number] Dictating Physician: MEGAN WRAY MD Electronically Signed by: MEGAN WRAY MD Dic Date/Time: 12/13/221713 Sign date/Time: 12/13/221714 Procedure Note Megan Wray MD - 07/23/2023 [facility] Diagnostic Imaging Department [address] [place] [address] Patient: FLORENCIO MONTIEL/Age/Sex: 1955 - 67 - F Unit#: [id number] Location/Status: SPDIMAM/REG CLI Mnemonic/Ordering [facility] Ordering Physician: JUDAH CHAN CNM Rich Dexa Axial Skeleton - 12/13/22 - [id number] Report Status:Signed History: Low estrogen state due to menopause. Comparison: 11/21/20 Findings: Bone densitometry is performed utilizing dual energy x-ray absorptiometry(DXA) in the [employer] unit. The lumbar spine and proximal femora areevaluated in the AP projection. The FRAX questionaire was completed. The results indicate low bone mass (osteopenia), with a right femoral neckT- score of -1.8. The Z score is -0.9, indicating bone mineral density withinthe range of normal for age. There has been no statistically significant change. The detailed DEXAreport will be mailed to the referring physician's office. [employer]emur FRAX: 10-year Probability of Fracture: Major Osteoporotic 5.4percent Hip 0.7 percent. IMPRESSION: Osteopenia. [id number] Dictating Physician: MEGAN WRAY MD Electronically Signed by: MEGAN WRAY MD Dic Date/Time: 12/13/221713 Sign date/Time: 12/13/221714 Judah [facility] IMG BI PROCEDURES Final Resul t * Hepatitis C Screening (04/14/2019) Hepatitis C Screening abstracted Historical Provider HEALTH MAINTENANCE Final Result from Last 3 Months or Most Recently Relevant to Health Maintenance Insurance [facility] MEDIC[facility] Member Subscriber Plan / Payer (Ef fective 2022-Present) Name:Florencio Montiel Relation to Subscriber:Self Name:Florencio Montiel Payer ID:[id number] Group ID:[id number] Type:Not on file Address: [place] [address] [place] [phone] Advance Directives Documents on File Type Date Recorded Patient Lookback Coordinator Expl anation Health Care Decision (hx) 09/03/2019 TRENTON QUEZADA DIRECTIVE Care Teams Retention Specialist Relationship Specialty Start Date End Date Niurka Aparicio MD [address] [place] [id number] PCP - General Internal Medicine 06/03/12
--- OUTSIDE RECORDS SUMMARY | 2025-04-27 08:29 | XMS_ITS | Clinical Summary ---
Author Organization [facility] Address [address] [place] [address] Care Team Providers Care Operator Weapon Locating Radar Name Role Phone Unavailable Primary Care Provider Unavailabl e Source Comments PLEASE NOTE, if this patient is a minor, it may be UNLAWFUL to discuss sensitive information that is contained in these records (such as FAMILY PLANNING, MENTAL HEALTH or SUBSTANCE ABUSE) with the minor patient's parent or other person without the patient's specific authorization.[facility] Social History Tobacco Use Types Packs/Day Years Used Date Smoking Tobacco: Never Alcohol Use Standard Drinks/Week Comments Yes 6.7 (1 standard drink = 0.6 oz p ure alcohol) Comments Unknown Sex and Gender Information Value Date Recorded Sex Assigned at Not on file Legal Sex Female 11:46 AM PDT Gender Identity Not on file Sexual Orientation Not on file Last Filed Vital Signs Vital Sign Reading Time Taken Comments Blood Pressure - - Pulse - - Temperature - - Respiratory Rate - - Oxygen Saturation - - Inhaled Oxygen Concentration - - Weight 112.5 kg (248 lb) 01/01/2013 3:55 PM EDT Height 165.1 cm (5' 5 ) 01/01/2013 3:55 PM EDT Body Mass Index 41.27 01/01/2013 3:55 PM EDT Plan of Treatment Not on file Goals Goal Patient Goal Type Associated Problems Recent Progress Patient-Stated? Author Have 3 meals a day Diet No Ginna Mercedes RD Eat breakfast Diet No Ginna Mercedes RD Eat more fruits and vegetables Diet No Ginna Mercedes RD Increase physical activity Exercise No Ginna Mercedes RD Insurance [place] [phone]
== END 2025-04-27 09:04 | disposition home or self-care (01) ==
PROVIDERS: PCP Internal Medicine; Visit Provider Physical Medicine & Rehabilitation
DX: M54.12 Radiculopathy, cervical region (principal); M54.2 Cervicalgia; M75.41 Impingement syndrome of right shoulder; M53.3 Sacrococcygeal disorders, not elsewhere classified; M46.1 Sacroiliitis, not elsewhere classified
CPT/HCPCS: 20610; 99214

== ENCOUNTER → 2025-04-27 08:20 | Outpatient (BNVA) | payer OTHER, SELFPAY | PROVIDERS: PCP Internal Medicine; Visit Provider Physical Medicine & Rehabilitation | DX: M54.12 Radiculopathy, cervical region (principal); M54.2 Cervicalgia; M75.41 Impingement syndrome of right shoulder; M53.3 Sacrococcygeal disorders, not elsewhere classified; M46.1 Sacroiliitis, not elsewhere classified | CPT/HCPCS: 20610; 99212; J2003; J3301 ==

== ENCOUNTER 2025-05-10 07:09 | Day surgery (SDC) | payer OTHER, SELFPAY ==
--- OUTSIDE RECORDS SUMMARY | 2025-05-05 23:09 | XMS_ITS ---
[facility] Name [facility] Organization [facility] Care Team Organization Name Specialty Phone Email Start Date End Da te [facility] JONO LIM Primary Care 04/24/2022 02/03/2024
--- OUTSIDE RECORDS SUMMARY | 2025-05-05 23:09 | XMS_ITS | Clinical Summary ---
Author Organization [facility] Address [address] [phone] Care Team Providers Care Milk House Worker Name Role Phone Niurka Aparicio MD Primary Care Prov ider Social History Tobacco Use Types Packs/Day Years Used Date Smoking Tobacco: Never Assessed Sex and Gender Information Value Date Recorded Sex Assigned at Not on file Gender Identity Not on file Sexual Orientation Not on file Job Start Date Occupation Industry Not on file Not on file Not on file Plan of Treatment Health Maintenance Due Date Last Done Comments Hepatitis C Screening 1955 COVID-19 Vaccine (#1) 1955 Depression Screening 1969 Preventative Health Evaluation 1975 Colon Cancer Screening (Colonoscopy) 2002 Breast Cancer Screening (Mammogram) 2007 Shingrix-Zoster Vaccine (1 o f 2) 2007 Fall Risk Assessment 2022 Osteoporosis Screening (DEXA Scan) 2022 Pneumococcal Vaccine (1 of 1 - PCV) 2022 Influenza Vaccine (#1) 2025 0, 04/14/2019 DTap / Tdap / Td (2 - Td or Tdap) 12/11/2027 12/10/2017 RSV Adult > 60+ Yrs or (1 - 1-dose 75+ series) 01/29/2032 Hepatitis B Vaccines Aged Out No long er eligible based on patient's age to complete this topic RSV Ped < 20 months Aged Out No longe r eligible based on patient's age to complete this topic Care Teams Milk House Worker Relationship Specialty Start Date End Date Niurka Aparicio MD PCP - General Internal Medicine 05/22/19
--- OUTSIDE RECORDS SUMMARY | 2025-05-05 23:10 | XMS_ITS | Data Portability ---
Author Organization [facility], [facility] Address [address] [place] [address] Care Team Providers Care Radioisotope Technician Name Role Phone HIM CCA OTHER BROOK LIM Primary Care Provider Assessment Encounter Date Assessment Date Assessment LastModified by Organization Details LastModified Time 10/15/2023 10/15/2023 I provided real -time medical direction via phone for this encounter and was available for additional phone-based assistance as needed. I have reviewed and agree with the Assessment and Plan as documented by the Environmental Science Program Director. Patient given the opportunity to ask questions. Our service contacted for an assessment of: Chronic BACK pain As per above, patient with hx of chronic pain. No new or worsening red S&S. No new bowel/bladder symptoms. No new gait abnl. No new neurological signs, symptoms or deficits. Per audit senior associate on the scene, VSS, non-toxic. Neuro grossly [...] Assessment and Plan as documented by the Environmental Science Program Director. Patient given the opportunity to ask questions. Our service contacted for an assessment of: Chronic right shoulder pain As per above, patient with hx of chronic right shoulder pain. No new or worsening red S&S. No new deficits. Per audit senior associate on the scene, VSS, non-toxic. Neuro grossly [...] Assessment and Plan as documented by the Environmental Science Program Director. I provided real-time medical direction via phone [...] recorded. Lab rapid flu (A+B) 2024 025 On license of [facility], [address] [place] [address], [id number] 11:29:05 rapid SARS CoV 2 Ag, QL IA, respiratory specimen [address], [id number] 5 11:29:06 Referral None recorded. Procedures None recorded. Surgeries None recorded. Imaging None recorded. Medication Orders ketorolac 30 mg/mL (1 mL) injection solution 2024 025 [email or web address] [facility], [address] [place] [address], [id number], 5 20:11:17 ketorolac 30 mg/mL injection solution 2023 024 [email or web address] [facility], [address] [place] [address], [id number], 4 16:36:03 ketorolac 30 mg/mL injection solution 2023 024 [email or web address] Not available 4 17:14:17 ketorolac 30 mg/mL [...] Details Last Updated DateTime 5 172.72 cm 88924.8 g 74 /min 98 % 98 % 14 /min 97.8 [degF] 156/88 mm[Hg] Not Available [facility] - production 5 20:05:30 Date Recorded Body weight Body height Heart rate Oxygen saturation Oxygen saturation in Arterial blood by Pulse oximetry Respiratory rate Systolic And Diastolic Provider Name and Address Organization Details Last Updated DateTime 4 41009.1 12 g 165.1 cm 76 /min 100 % 100 % 16 /min 187/77 mm[Hg] Not Available [facility] 4 11:52:55 Date Recorded Respiratory rate Body weight Body height Heart rate Oxygen saturation Oxygen saturation in Arterial blood by Pulse oximetry Body temperature Systolic And Diastolic Provider Name and Address Organization Details Last Updated DateTime 4 16 /min 47275.1 12 g 165.1 cm 72 /min 99 % 99 % 98.4 [degF] 170/90 mm[Hg] Not Available [facility] 4 17:12:35 Date Recorded Body temperature Heart rate Oxygen saturation Oxygen saturation in Arterial blood by Pulse oximetry Respiratory rate Systolic And Diastolic Provider Name and Address Organization Details Last Updated DateTime 5 98.7 [degF] 81 /min 99 % 99 % 18 /min 164/98 mm[Hg] Not Available [facility] 5 10:32:21 Date Recorded Respiratory rate Heart rate Body temperature Body height Oxygen saturation Oxygen saturation in Arterial blood by Pulse oximetry Body weight Systolic And Diastolic Provider Name and Address Organization Details Last Updated DateTime 4 14 /min 72 /min 98.4 [degF] 162.56 cm 96 % 96 % 94452.8 g 136/82 mm[Hg] Not Available [facility] 4 16:33:18 Social History None recorded. Functional [...] [id number] Olman Clemons MD Main - [facility] [address] [place] [phone] 03/16/2022 18:05:07 03/16/2022 18:09:29 [id number] Roxana Rivas MD Main - [facility] [address] [place] [phone] 10/15/2023 11:52:53 10/15/2023 20:01:58 Chronic low back pain [id number] M54.50 [id number] Shavon Leal MD Main - [facility] [address] [place] [phone] 10/16/2023 17:12:26 10/17/2023 11:17:57 Low back pain [id number] M54.50 68 year old female being evaluated [...] assessment and plan as documented by the audit senior associate. I provided real-time medical direction for this encounter and was immediatel y available to provide additional phone-base d assistance as needed. We discussed the diagnostic uncertaint y of home visits and associated risks. We discussed the need to seek care urgently/e mergently in the setting of any new or worsening symptoms. [id number] Roxana Rivas MD Main - [facility] [address] [place] [phone] 03/10/2024 21:25:50 06/29/2024 21:51:35 Sialoadenitis 56656618 K11.20 [id number] BERTIN MADDOX MD Main - [facility] [address] [place] [phone] 04/01/2024 16:33:16 04/01/2024 21:30:51 Low back pain [id number] M54.50 Evaluation in the field was performed by my audit senior associate colleague, as noted above, I provided real-time [...] of breath (SOB), or any other concerns. [id number] Roxana Rivas MD Main - [facility] [address] [place] [phone] 08/12/2024 20:05:28 08/13/2024 00:31:12 Pain of shoulder region [id number] M25.519 [id number] Ethan Gusman MD Main - [facility] [address] [place] [phone] 10/21/2024 10:32:14 10/21/2024 18:03:20 Congestion of nasal sinus 94256324 R09.81 [id number] Health Concerns Section Related Observation LastModified by Organization Detai ls LastModified Time None Recorded Concern Status LastModified by Organization Details LastModified Time None Recorded Advance Directives Directive None Recorded Payers Insurance Date Sequence Insurance Name Policy Number Policy Batista Covered Member ID Batista Member ID Guarantor Name 06/29/2024 1 [facility] - DOS PRIOR TO 2022 - DUAL ELIGIBLE (MEDICARE REPLACEMENT/AD VANTAGE - HMO) Zaira Montiel [id number] Zaira Montiel 10/21/2024 1 [facility] - DOS ON OR AFTER 2022 - DUAL ELIGIBLE - JAIL OPTIONS AND ONE CARE (MEDICARE REPLACEMENT/AD VANTAGE - HMO) Zaira Montiel [id number] Zaira Montiel Notes Date Note Type Note [...] Pain PMH: Hypertension Allergies: No Known Comments: Communications Analyst verified the member's name//address and phone number. Education provided on the response time and the member was advised to monitor reported s/s and seek emergency treatment if needed.Member reports reports lower back pain -Reports twisting wrong. Increased pain with ambulation - Member is requesting pain management options - Concerns expressed and ER treatment was declined. ...................... ...................... ...................... ...................... ...................... ...................... ......... Environmental Science Program Director Note From Eric Rashid: Pt reports t wisting her back when trying to pick something up yesterday. Pt took a Percocet which upset her stomach. Pt requesting IM ketorolac. Pt does not have any contraindications for ketorolac. [facility] contacted and pt treated with ketorolac 30 mg IM, left deltoid. Pt advised to f/u with PCP and to seek emergent medical care for new or worsening sx, which are reviewed with her. ...................... ...................... ...................... ...................... ...................... ...................... ......... Disposition: Fulfilled Roxana Rivas MD [address] [place] [address],[address], [place], [phone], [employer] [facility] 10/15/2023 11:54:58 10/16/2023 text/html CRC Nurse Triage Notes (Portia Weeks): Chief Complaints: Pain PMH: Hypertension Allergies: Unknown Comments: Chronic lower back pain. [facility] visit yesterday for same chronic pain, received Toradol injection with relief. Today member reports right lower back pain wrapping around to right lower abdomen. No acute injuries reported. ...................... ...................... ...................... ...................... ...................... ...................... ......... Environmental Science Program Director Note From Federico Amos: [facility] visit for [...] spasm. V/S taken. Pt afebrile. Consulted with [facility] Dr. Leal who prescribed 30 mg IM toradol and encouraged pt to follow up with PCP. Reviewed red flags for ED. Pt education provided. ...................... ...................... ...................... ...................... ...................... ...................... ......... Disposition: Fulfilled Shavon Leal MD [address] [place] [address],[address], [place], [phone] [employer] [facility] 10/16/2023 18:48:25 04/01/2024 text/html ROS as noted in the [facility] Nurse Triage Notes (Elsie Landaverde): Reason For Request: PT requesting help with pain for lower back, right side Chief Complaints: Pain PMH: Hypertension Allergies: No Known Pain Assessment: Level 10 out of 10 Comments: Communications Analyst verified the member's name//address and phone number. [...] ...................... ...................... ...................... ...................... ...................... ...................... ......... Environmental Science Program Director Note From Troy Maurer: Patient alert and [...] t pink warm dry secondary exam unremarkable. [facility] orders Toradol 30 mg IM. Administered is noted without complication. Red flags, patient education discussed. ...................... ...................... ...................... ...................... ...................... ...................... ......... Disposition: Stormy MADDOX MD [address] [facility],[address], [place], [address], [employer] 04/01/2024 17:27:09 08/12/2024 text/html [facility] Nurse Triage Notes (Marco A Seema): [...] ...................... ...................... ...................... ...................... ...................... ...................... ......... Environmental Science Program Director Note From Troy Maurer: Patient alert and oriented complains of acute on chronic right shoulder pain. Patient complains of bilateral shoulder pain, right is worse. Patient denies recent trauma or any other pain or complaints. Patient denies tingling or numbness, weakness, unequal food porter, or any other. Patient denies kidney or bleeding problems. Reports Tylenol does not help that much. Patient requests Toradol injection. Patient pink warm dry good CSM s in upper extremities. Secondary exam unremarkable. [facility] orders Toradol 30 mg IM. Administered as ordered using five rights without complication. Patient appreciative a visit, red flags, patient education discussed. [facility] Medication Orders: ketorolac 30 mg/mL (1 mL) injection solution: Administered ...................... ...................... ...................... ...................... ...................... ...................... ......... [facility] Consulted: Roxana Rivas ...................... ...................... ...................... ...................... ...................... ...................... ......... Disposition: Fulfilled Roxana Rivas MD [address] [place] [address],[address], [place], [phone], [employer] [facility] 08/12/2024 20:42:23 10/21/2024 text/html [facility] Nurse Triage [...] signs of when to seek emergency care. Environmental Science Program Director Organization Information for Mohinibrendan Dariusz Syed GUERRERO Business Legal Name: [employer]. Address: [address] [place] [address], Hoisting Engine Operator: Juanjose Arizmendi MD CLIA No.: [id number] Environmental Science Program Director POC Test Results from Dariusz العراقي Rapid COVID antigen (10:30:30) COVID: - Attachments uploaded as part of this test result can be found under Documents section. Rapid influenza antigen (10:30:30) Flu: - Attachments uploaded as part of this test result can be found under Documents section. ...................... ...................... ...................... ...................... ...................... ...................... ......... Environmental Science Program Director Note From Dariusz العراقي: Encountered patient conscious, [...] and flu swabs performed, both resulted negative; [facility] notified. Skin warm, dry and of appropriate color for ethnicity. Head and neck, free of trauma and edema.-JVD. Breath sounds present, clear and equal bilaterally. Abdomen is soft, non-tender, and non-distended. Extremities are free of trauma and edema. [facility] contacted: [facility] states that time from symptoms until appointment has not been long enough to warrant the use of antibiotics as the origin of infection has not been determined between bacterial or viral. [facility] states that usually within 1 to 2 weeks is when treatment with antibiotics are warranted as most sinus infections can resolve on their own with supportive care. Patient was encouraged to attempt to schedule an appointment with her primary care or to contact [facility] for a subsequent visit if her symptoms do not resolve. Patient verbalizes understanding of the plan and states she is comfortable with remaining home at this time. [facility] Lab Orders: rapid flu (A+B): Performed rapid SARS CoV 2 Ag, QL IA, respiratory specimen: Performed ...................... ...................... ...................... ...................... ...................... ...................... ......... [facility] Consulted: Ethan Gusman ...................... ...................... ...................... ...................... ...................... ...................... ......... Disposition: Fulfilled Ethan Gusman MD [address] [place] [address],[address], [place], [phone], RUDDY MARQUES 10/21/2024 14:39:21 OBGyn Episode No OBEpisode recorded.
--- NOTE | 2025-05-06 09:34 | HO.ANESPROP2 ---
Documented by User: Celina Santa NP 05/06/25 09:34 HPI - Anesthesia Eval Consult details Narrative: 70yo F for?Sacroiliac Joint Injection Anesthesia Pre-Procedure Meds Is the patient on any of the following meds?: GLP1/DPP4 PMFSH Active Problems Active Problems: All Active Problems Sacroiliac inflammation (Acute) Sacroiliac dysfunction (Acute) Rotator cuff impingement syndrome of right shoulder (Acute) Neck pain (Acute) Cervical radiculitis (Acute) Past Medical History Medical History Anxiety Insomnia History of exam under anesthesia with epidural steroid injection HTN (hypertension) Arthritis HLD (hyperlipidemia) GERD (gastroesophageal reflux disease) Sacroiliac dysfunction Surgical History Surgical History S/P gastric sleeve procedure (~2015) S/P cholecystectomy Status post total right knee replacement Social History Social History Household Members: None Housing: Apartment Alcohol intake: current Alcohol intake frequency: does not drink Patient Tobacco Use Status: Never used Tobacco e-Cigarette/Vaping Use: Never Used Use of substances other than those prescribed or required for medical reasons: No Have you been hit, kicked, punched, or otherwise hurt by someone within the past year? If so, by whom?: No Are you DNR?: No Advance Directives: No (will bring dos) Advance Directives Information Provided: No Advance Directives on File: No Current occupational status: retired Meds Allergies Allergy/AdvReac Type Severity Reaction Status Date / Time No Known Allergies Allergy Verified 05/07/25 10:23 Home Medications ?Medication ?Instructions ?Recorded ?Confirmed ?Last Taken ?Type clonazepam 0.5 mg tablet 0.5 mg PO DAILY 04/21/25 05/07/25 Unknown History labetalol 100 mg tablet 100 mg PO BID 04/21/25 05/07/25 05/10/25 History lisinopril 20 mg tablet 20 mg PO DAILY 04/21/25 05/07/25 Unknown History naloxone 4 mg/actuation nasal spray intranasal 04/21/25 Unknown History oxycodone-acetaminophen 5 mg-325 1 tab PO QID PRN Pain 04/21/25 05/07/25 Unknown History mg tablet pantoprazole 40 mg tablet,delayed 40 mg PO DAILY 04/21/25 05/07/25 05/10/25 History release semaglutide 2 mg/dose (8 mg/3 mL) mg subcut 04/21/25 05/03/25 History subcutaneous pen injector (Ozempic) zolpidem 10 mg tablet 10 mg PO BEDTIME PRN Insomnia 04/21/25 05/07/25 Unknown History Exam Pertinent Lab Results Pertinent Lab Results: LABS/IMAGING: Lab Results Component Value Date ? WBC 10.7 10/12/2024 ? HGB 12.1 10/12/2024 ? HCT 39.3 10/12/2024 ? MCV 104.5 (H) 10/12/2024 ? Lab Results Component Value Date ? NA 140 10/12/2024 ? K 4.5 10/12/2024 ? CO2 27 10/12/2024 ? CL 108 10/12/2024 ? BUN 17 10/12/2024 ? ALKPHOS 105 10/12/2024 Assessment and Plan Assessment Anesthesia Assessment: Chart Reviewed Documented by User: Hortencia Roman MD 05/10/25 08:03 [facility] Past Medical History Medical History Anxiety Insomnia History of exam under anesthesia with epidural steroid injection HTN (hypertension) Arthritis HLD (hyperlipidemia) GERD (gastroesophageal reflux disease) Sacroiliac dysfunction Surgical History Surgical History S/P gastric sleeve procedure (~2015) S/P cholecystectomy Status post total right knee replacement History of Problems with Anesthesia: No Social History Social History Household Members: None Housing: Apartment Alcohol intake: current Alcohol intake frequency: does not drink Patient Tobacco Use Status: Never used Tobacco e-Cigarette/Vaping Use: Never Used Use of substances other than those prescribed or required for medical reasons: No Have you been hit, kicked, punched, or otherwise hurt by someone within the past year? If so, by whom?: No Are you DNR?: No Advance Directives: No (will bring dos) Advance Directives Information Provided: No Advance Directives on File: No Current occupational status: retired Meds Allergies Allergy/AdvReac Type Severity Reaction Status Date / Time No Known Allergies Allergy Verified 05/07/25 10:23 Home Medications ?Medication ?Instructions ?Recorded ?Confirmed ?Last Taken ?Type clonazepam 0.5 mg tablet 0.5 mg PO DAILY 04/21/25 05/07/25 Unknown History labetalol 100 mg tablet 100 mg PO BID 04/21/25 05/07/25 05/10/25 History lisinopril 20 mg tablet 20 mg PO DAILY 04/21/25 05/07/25 Unknown History naloxone 4 mg/actuation nasal spray intranasal 04/21/25 Unknown History oxycodone-acetaminophen 5 mg-325 1 tab PO QID PRN Pain 04/21/25 05/07/25 Unknown History mg tablet pantoprazole 40 mg tablet,delayed 40 mg PO DAILY 04/21/25 05/07/25 05/10/25 History release semaglutide 2 mg/dose (8 mg/3 mL) mg subcut 04/21/25 05/03/25 History subcutaneous pen injector (Ozempic) zolpidem 10 mg tablet 10 mg PO BEDTIME PRN Insomnia 04/21/25 05/07/25 Unknown History Exam Airway Mallampati Class: II TM Dist: >3cm Neck ROM: Full Loose/Missing/Broken Teeth: No Heart: RRR Lungs: CTA Assessment and Plan Assessment Anesthesia Assessment: Anesthesia Plan Discussed Final Anesthetic Review History of Problems with Anesthesia: No NPO: Yes ASA Class: II Final Preanesthetic Review: Meds/Allgs Chart Reviewed, Consent Obtained/Reviewed and Anes Risks/Benef Reviewed Patient Risk: Low Procedure Risk: Low Anesthetic Plan Anesthetic Plan: MAC: Disposition: Standard PACU
[2025-05-06 11:32] VITALS: BMI 27.5
[2025-05-07 10:26] VITALS: BMI 27.1
--- NOTE | ~2025-05-10 | FL_ITS ---
EXAMINATION: FL GUIDANCE ONLY HISTORY: SI joint injection, right COMPARISON: None available. TECHNIQUE: Fluoroscopy time: 16 seconds. Cumulative Dose: 3.70 mGy. DAP: 6 2.04 uGym2 Images: 2. FINDINGS: Fluoroscopic spot films of the right hemipelvis demonstrate a needle and contrast material in the region of the sacroiliac joints. FL/FL guidance in OR IMPRESSION: Fluoroscopy during procedure. Please see procedure report for additional information. Electronically signed by: Robi Flaherty MD 05/10/2025 11:32 AM [facility]
[2025-05-10 07:47] VITALS: BP 114/52; PULSE 61; RESP 16; TEMP 36.4; O2SAT 97
[2025-05-10] MEDS: Lactated Ringers 1,000 ML 100 ML IVCONT (07:49)
--- NOTE | 2025-05-10 07:59 | MHC.SHP ---
Pre-Procedural Eval Section A - 24 Hr Update-Section A only Date of Service: 05/10/25 The patient is an INPATIENT: No Section B - Complete if H&P > 30 days Chief Complaint: Sacrococcygeal disorders, not elsewhere classified Details of Present Illness: History of lumbar fusion, SI joint mediated pain Relevant Family History (Specify if Yes): No Relevant Social History: None Present Medications: see Short Stay Collaborative assessment Medical History: No relevant PMH History of Previous Operations: Relevant previous surgery/procedure and date(s) (Lumbar fusion) Allergies: Allergies Allergy/AdvReac Type Severity Reaction Status Date / Time No Known Allergies Allergy Verified 05/07/25 10:23 Review of Systems Sugical H&P ROS: Negative: Constitution, Cardiovascular, Respiratory, Neurological, Psychiatric, Hem-Onc, Allergic/Immunologic, Gastrointestinal, Genitourinary, Musculoskeletal, Integumentary, Endocrine and Eyes/Ears/Nose/Throat Exam Surgical H&P Exam: Normal: HEENT, Normal: Heart, Normal: Lungs, Normal: Extremities, Normal: Abdomen, Normal: Skin and Normal: Neurological Plan Diagnosis/Plan: Unchanged I have reviewed the history and physical and performed a pertinent physical examination on my patient. No changes have occurred unless specified. Time Spent With Patient Time: Total time managing care of this patient today ____ minutes.
--- NOTE | 2025-05-10 08:00 | W.PM.OPN ---
Operative Note Operative Note Date of Service: 05/10/25 Narrative: Procedure performed: Right sacroiliac joint injection Preop diagnosis: SI joint mediated pain, sacroiliitis Postop diagnosis: The same Anesthesia: Mac After informed consent was obtained patient was brought into the procedure room and placed in prone position on the procedure table. Skin over lumbar sacral area was prepped and draped in the usual sterile manner. The inferior portion of the right sacroiliac joint was visualized utilizing fluoroscopy. 3.5 in 22 gauge spinal needle was introduced percutaneously and advanced into the joint. Needle placement was verified utilizing 0.5 cc of Omnipaque contrast solution. 2.5 cc of therapeutic solution containing 40 mg of triamcinolone and 0.5% Marcaine was injected after negative aspiration for blood. The C-arm was obliqued about 30? in the contralateral direction an area just medial the proximal portion of the sacroiliac joint was visualized. 3.5 in 22 gauge spinal needle was introduced percutaneously and advanced to enter the area. Once in place, needle placement was identified utilizing 1 cc of Omnipaque contrast solution. Total volume of 2.5 cc containing 40 mg of triamcinolone and 0.5% Marcaine was injected to block the lateral branches at the sacroiliac ligament. Radiation exposure was documented in the chart.
[2025-05-10 08:53] VITALS: BP 115/51; PULSE 59; RESP 18; TEMP 36.4; O2SAT 97
[2025-05-10 09:08] VITALS: BP 119/56; PULSE 66; RESP 16; TEMP 36.4; O2SAT 99
== END 2025-05-10 09:38 | disposition home or self-care (01) ==
PROVIDERS: PCP Internal Medicine; Visit Provider Physical Medicine & Rehabilitation
PROC: (CPT 27096; principal; 2025-05-10 08:30)
DX: M53.3 Sacrococcygeal disorders, not elsewhere classified (principal); M46.1 Sacroiliitis, not elsewhere classified; M54.50 Low back pain, unspecified; M54.2 Cervicalgia; M75.41 Impingement syndrome of right shoulder; R20.0 Anesthesia of skin; R20.2 Paresthesia of skin; Z79.899 Other long term (current) drug therapy; Z98.1 Arthrodesis status; Z98.890 Other specified postprocedural states; Z98.84 Bariatric surgery status
CPT/HCPCS: 27096; J0665; J2250; J3010; J3301; Q9967

== ENCOUNTER → 2025-05-10 07:09 | Outpatient (BNV) | payer OTHER, SELFPAY | PROVIDERS: PCP Internal Medicine; Visit Provider Physical Medicine & Rehabilitation | DX: M46.1 Sacroiliitis, not elsewhere classified (principal) | CPT/HCPCS: 27096 ==

== ENCOUNTER → 2025-05-22 08:21 | Outpatient (BNV) | payer OTHER, SELFPAY | PROVIDERS: PCP Internal Medicine; Visit Provider Radiology Diagnostic Radiology | DX: M50.10 Cervical disc disorder with radiculopathy, unspecified cervical region (principal); M99.61 Osseous and subluxation stenosis of intervertebral foramina of cervical region; M40.202 Unspecified kyphosis, cervical region; M25.78 Osteophyte, vertebrae; Z98.1 Arthrodesis status | CPT/HCPCS: 72141 ==

== ENCOUNTER 2025-05-22 08:46 | Outpatient (REF) | payer OTHER, SELFPAY ==
--- OUTSIDE RECORDS SUMMARY | 2024-03-26 06:30 | XMS_ITS | Encounter Summary ---
Author Organization [employer] Address [address] [place] [address] Care Team Providers Care Almond Blancher Name Role Phone Niurka Aparicio MD Primary Care Prov ider Encounter Details Date Type Department Care Team (Late st Contact Info) Description 03/26/2024 7:30 AM EDT Hospital Encounter TH HISTORIC ENCOUNTERS EASTERN CONVERSION ONLY Darrin Leyva DO [address] [facility] [address] [place] [address] Social History Tobacco Use Types Packs/Day Years [...] care for your loved ones. For example, maternal child nurse or elderly care for an older adult? [...] Care Team (Late st Contact Info) Description 08/02/2025 9:30 AM EST Office Visit Adult Medicine [facility] [address] [place] [address] Niurka Aparicio MD [address] [place] [address] 08/05/2025 9:45 AM EST Office Visit Bariatric Surgery - [address] [place] [phone] Bijan Mcwilliams MD [address] [place] [address] documented as of this encounter Visit Diagnoses Not on filedocumented in this encounter Care Teams Almond Blancher Relationship Specialty Start Date End Date Niurka Aparicio MD [address] [place] [address] PCP - General Internal Medicine 06/03/12 documented as of this encounter
--- NOTE | ~2025-05-22 | MR_ITS ---
CLINICAL HISTORY: M54.12 - Radiculopathy, cervical region MR cervical spine without gadolinium Comparison: None provided Findings: Kyphotic curvature of the cervical spine centered at C4/C5. C5-C7 anterior cervical discectomy and fusion. Nftj-iz-wdwkjzjz edematous +/-Modic type 1 changes involving portions of the C4 vertebral body. No marrow infiltration. No acute fracture. Incompletely evaluated partially empty sella. Otherwise unremarkable visualized brain. Mild mucosal thickening and polyp/retention cyst in the right maxillary sinus. Decreased flow void in portions of the left internal jugular vein likely artifactual. Signal intensity of the visualized cord is unremarkable. C2/C3: Mild left neural foraminal stenosis. C3/C4: Mild left neural foraminal stenosis. C4/C5: Requlkzp-sc-fhkvbl left neural foraminal stenosis. Up to 2 mm (AP dimension) posterior disc osteophyte mildly flattens the cord without causing significant central canal compromise. C5/C6: Small right neural foraminal perineural cyst and mild bilateral neural foraminal compromise. C7/T1: Grade 1 retrolisthesis and lzfl-nx-qgyjictz left more than right neural foraminal stenosis. T1/T2: Mild bilateral neural foraminal compromise. T3/T4: On the sagittal images, up to 2 mm (AP dimension) posterior disc herniation without significant central canal compromise. IMPRESSION: Kyphotic curvature of the cervical spine centered at C4/C5. C5-C7 anterior cervical discectomy and fusion. C4/C5: Qyfdleqz-yb-bhmyfu left neural foraminal stenosis. Up to 2 mm (AP dimension) posterior disc osteophyte mildly flattens the cord without causing significant central canal compromise. C7/T1: Grade 1 retrolisthesis and unqb-uv-heoisrsy left more than right neural foraminal stenosis. T3/T4: On the sagittal images, up to 2 mm (AP dimension) posterior disc herniation without significant central canal compromise. This document has been electronically signed by: Bety Perry MD on 05/25/2025 11:43:39
--- OUTSIDE RECORDS SUMMARY | 2025-05-22 08:49 | XMS_ITS | Data Portability ---
Author Organization [employer] [facility], [facility] Address [address] [place] [address] Care Team Providers Care Retail Account Specialist Name Role Phone HIM CCA OTHER BROOK LIM Primary Care Provider Assessment Encounter Date Assessment Date Assessment LastModified by Organization Details LastModified Time 10/15/2023 10/15/2023 I provided real -time medical direction via phone for this encounter and was available for additional phone-based assistance as needed. I have reviewed and agree with the Assessment and Plan as documented by the [employer] Liquid [employer] Applier. Patient given the opportunity to ask questions. Our service contacted for an assessment of: Chronic BACK pain As per above, patient with hx of chronic pain. No new or worsening red S&S. No new bowel/bladder symptoms. No new gait abnl. No new neurological signs, symptoms or deficits. Per hereditary cancer program coordinator on the scene, VSS, non-toxic. Neuro grossly [...] Assessment and Plan as documented by the [employer] Liquid [employer] Applier. Patient given the opportunity to ask questions. Our service contacted for an assessment of: Chronic right shoulder pain As per above, patient with hx of chronic right shoulder pain. No new or worsening red S&S. No new deficits. Per hereditary cancer program coordinator on the scene, VSS, non-toxic. Neuro grossly [...] Assessment and Plan as documented by the Col[employer] Liquid [employer] Applier. I provided real-time medical direction via phone [...] recorded. Lab rapid flu (A+B) 2024 025 [facility], [address] [place] [address], [id number] 11:29:05 rapid SARS CoV 2 Ag, QL IA, respiratory specimen [address], [id number] 5 11:29:06 Referral None recorded. Procedures None recorded. Surgeries None recorded. Imaging None recorded. Medication Orders ketorolac 30 mg/mL (1 mL) injection solution 2024 025 [email or web address] [facility], [address] [place] [address], [id number], 5 20:11:17 ketorolac 30 mg/mL injection solution 2023 024 [email or web address] [facility], [address] [place] [address], [id number], 4 16:36:03 ketorolac 30 mg/mL injection solution 2023 024 [email or web address] Not available 4 17:14:17 ketorolac 30 mg/mL [...] 2023 active Not Available Not Available Not Radha bonilla Vitals Date Recorded Body height Body weight Heart rate Oxygen saturation Respiratory rate Body temperature Systolic And Diastolic Provider Name and Address Organization Details Last Updated DateTime 5 172.72 cm 26449.8 g 74 /min 98 % 14 /min 97.8 [degF] 156/88 mm[Hg] Not Available [employer] - production 5 20:05:30 Date Recorded Body weight Body height Heart rate Oxygen saturation Respiratory rate Systolic And Diastolic Provider Name and Address Organization Details Last Updated DateTime 4 75714.1 12 g 165.1 cm 76 /min 100 % 16 /min 187/77 mm[Hg] Not Available [employer] 4 11:52:55 Date Recorded Respiratory rate Body weight Body height Heart rate Oxygen saturation Body temperature Systolic And Diastolic Provider Name and Address Organization Details Last Updated DateTime 4 16 /min 09005.1 12 g 165.1 cm 72 /min 99 % 98.4 [degF] 170/90 mm[Hg] Not Available [employer] 4 17:12:35 Date Recorded Body temperature Heart rate Oxygen saturation Respiratory rate Systolic And Diastolic Provider Name and Address Organization Details Last Updated DateTime 5 98.7 [degF] 81 /min 99 % 18 /min 164/98 mm[Hg] Not Available [employer] 5 10:32:21 Date Recorded Respiratory rate Heart rate Body temperature Body height Oxygen saturation Body weight Systolic And Diastolic Provider Name and Address Organization Details Last Updated DateTime 4 14 /min 72 /min 98.4 [degF] 162.56 cm 96 % 31475.8 g 136/82 mm[Hg] Not Available [employer] 4 16:33:18 Social History None recorded. Functional [...] [id number] Olman Clemons MD Main - [facility] [address] [place] [phone] 03/16/2022 18:05:07 03/16/2022 18:09:29 [id number] Rxoana Rivas MD Main - [facility] [address] [place] [phone] 10/15/2023 11:52:53 10/15/2023 20:01:58 Chronic low back pain [id number] M54.50 [id number] [facility] [address] [place] [phone] 10/16/2023 17:12:26 10/17/2023 11:17:57 Low back pain [id number] M54.50 68 year old female being evaluated [...] assessment and plan as documented by the hereditary cancer program coordinator. I provided real-time medical direction for this encounter and was immediatel y available to provide additional phone-base d assistance as needed. We discussed the diagnostic uncertaint y of home visits and associated risks. We discussed the need to seek care urgently/e mergently in the setting of any new or worsening symptoms. [id number] [facility] [address] [place] [phone] 03/10/2024 21:25:50 06/29/2024 21:51:35 Sialoadenitis [id number] K11.20 [id number] [facility]ERTIN [facility]AD[facility]X [facility] [address] [place] [phone] 04/01/2024 16:33:16 04/01/2024 21:30:51 Low back pain [id number] M54.50 Evaluation in the field was performed by my hereditary cancer program coordinator colleague, as noted above, I provided real-time [...] of breath (SOB), or any other concerns. [id number] Roxana Rivas MD Main - [facility] [address] [place] [phone] 08/12/2024 20:05:28 08/13/2024 00:31:12 Pain of shoulder region 30680938 M25.519 [id number] Ethan Gusman MD Main - [facility] [address] [place] [phone] 10/21/2024 10:32:14 10/21/2024 18:03:20 Congestion of nasal sinus 59028361 R09.81 [id number] Health Concerns Section Related Observation LastModified by Organization Detai ls LastModified Time None Recorded Concern Status LastModified by Organization Details LastModified Time None Recorded Advance Directives Directive None Recorded Payers Insurance Date Sequence Insurance Name Policy Number Policy Batista Covered Member ID Batista Member ID Guarantor Name 06/29/2024 1 [facility] - DOS PRIOR TO 2022 - DUAL ELIGIBLE (MEDICARE REPLACEMENT/AD VANTAGE - HMO) Zaira Montiel [id number] Zaira Montiel 10/21/2024 1 [facility] - DOS ON OR AFTER 2022 - DUAL ELIGIBLE - RETIREMENT OPTIONS AND ONE CARE (MEDICARE REPLACEMENT/AD VANTAGE - HMO) Zaira Montiel [id number] Zaira Montiel Notes Date Note Type Note [...] Pain PMH: Hypertension Allergies: No Known Comments: Therapy Aide verified the member's name//address and phone number. Education provided on the response time and the member was advised to monitor reported s/s and seek emergency treatment if needed.Member reports reports lower back pain -Reports twisting wrong. Increased pain with ambulation - Member is requesting pain management options - Concerns expressed and ER treatment was declined. ...................... ...................... ...................... ...................... ...................... ...................... ......... [employer] App[employer] Note From Eric Rashid: Pt reports t wisting her back when trying to pick something up yesterday. Pt took a Percocet which upset her stomach. Pt requesting IM ketorolac. Pt does not have any contraindications for ketorolac. [facility] contacted and pt treated with ketorolac 30 mg IM, left deltoid. Pt advised to f/u with PCP and to seek emergent medical care for new or worsening sx, which are reviewed with her. ...................... ...................... ...................... ...................... ...................... ...................... ......... Disposition: Fulfilled Roxana Rivas MD [address] [place] [address],[address], [place], [phone], [employer] 10/15/2023 11:54:58 10/16/2023 text/html CRC Nurse Triage Notes (Portia Weeks): Chief Complaints: Pain PMH: Hypertension Allergies: Unknown Comments: Chronic lower back pain. [facility] visit yesterday for same chronic pain, received Toradol injection with relief. Today member reports right lower back pain wrapping around to right lower abdomen. No acute injuries reported. ...................... ...................... ...................... ...................... ...................... ...................... ......... [employer] Applier Note From Federico Amos: [facility] visit for female patient with back pain. [...] spasm. V/S taken. Pt afebrile. Consulted with [facility] Dr. Leal who prescribed 30 mg IM toradol and encouraged pt to follow up with PCP. Reviewed red flags for ED. Pt education provided. ...................... ...................... ...................... ...................... ...................... ...................... ......... Disposition: Fulfilled Shavon Leal MD [address] [place] [address],[address], [place], [phone], [employer] 10/16/2023 18:48:25 04/01/2024 text/html ROS as noted in the [facility] CRC Nurse Triage Notes (Elsie Landaverde): Reason For Request: PT requesting help with pain for lower back, right side Chief Complaints: Pain PMH: Hypertension Allergies: No Known Pain Assessment: Level 10 out of 10 Comments: Therapy Aide verified the member's name//address and phone number. [...] ...................... ...................... ...................... ...................... ...................... ...................... ......... [employer] Applier Note From Troy Maurer: Patient alert and [...] t pink warm dry secondary exam unremarkable. [facility] orders Toradol 30 mg IM. Administered is noted without complication. Red flags, patient education discussed. ...................... ...................... ...................... ...................... ...................... ...................... ......... Disposition: Stormy MADDOX MD [address] [facility],[address], [place], [phone], [employer] 04/01/2024 17:27:09 08/12/2024 text/html CRC Nurse Triage Notes (Seema Strickland): Reason For Request: pt is experiencing pain [...] PMH Reviewed at 08/12/2024: Allergies Reviewed at 08/12/2024 - : Comments: Patient calling in to place a [...] ...................... ...................... ...................... ...................... ...................... ...................... ......... [employer] Applier Note From Troy Maurer: Patient alert and oriented complains of acute on chronic right shoulder pain. Patient complains of bilateral shoulder pain, right is worse. Patient denies recent trauma or any other pain or complaints. 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 Patient denies kidney or bleeding problems. Reports Tylenol does not help that much. Patient requests Toradol injection. Patient pink warm dry good CSM s in upper extremities. Secondary exam unremarkable. [facility] orders Toradol 30 mg IM. Administered as ordered using five rights without complication. Patient appreciative a visit, red flags, patient education discussed. [facility] Medication Orders: ketorolac 30 mg/mL (1 mL) injection solution: Administered ...................... ...................... ...................... ...................... ...................... ...................... ......... [facility] Consulted: Roxana Rivas ...................... ...................... ...................... ...................... ...................... ...................... ......... Disposition: Fulfilled Roxana Rivas MD [address] [place] [address],[address] [facility], [place], [phone], [employer] 08/12/2024 20:42:23 10/21/2024 text/html CRC Nurse Triage [...] PMH: Hypertension, Chronic Pain PMH Reviewed at 10/21/2024 - 08:19 Allergies Reviewed at 10/21/2024 08:19 Comments: 69 y.o female complains of Common [...] signs of when to seek emergency care. [employer] Applier Organization Information for Dariusz العراقي Business Legal Name: [employer]. Address: [address] [place] [address], Physician Assistant Certified: Juanjose Arizmendi MD JOVANI No.: [id number] [employer] Applier POC Test Results from Dariusz [employer] Rapid COVID antigen (10:30:30) COVID: - Attachments uploaded as part of this test result can be found under Documents section. Rapid influenza antigen (10:30:30) Flu: - Attachments uploaded as part of this test result can be found under Documents section. ...................... ...................... ...................... ...................... ...................... ...................... ......... [employer] Applier Note From Dariusz العراقي: Encountered patient conscious, [...] and flu swabs performed, both resulted negative; [facility] notified. Skin warm, dry and of appropriate color for ethnicity. Head and neck, free of trauma and edema.-JVD. Breath sounds present, clear and equal bilaterally. Abdomen is soft, non-tender, and non-distended. Extremities are free of trauma and edema. [facility] contacted: [facility] states that time from symptoms until appointment has not been long enough to warrant the use of antibiotics as the origin of infection has not been determined between bacterial or viral. [facility] states that usually within 1 to 2 weeks is when treatment with antibiotics are warranted as most sinus infections can resolve on their own with supportive care. Patient was encouraged to attempt to schedule an appointment with her primary care or to contact [facility] for a subsequent visit if her symptoms do not resolve. Patient verbalizes understanding of the plan and states she is comfortable with remaining home at this time. [facility] Lab Orders: rapid flu (A+B): Performed rapid SARS CoV 2 Ag, QL IA, respiratory specimen: Performed ...................... ...................... ...................... ...................... ...................... ...................... ......... [facility] Consulted: Ethan Gusman ...................... ...................... ...................... ...................... ...................... ...................... ......... Disposition: Fulfilled Ethan Gusman MD [address] [facility],[address], [place], [phone], [employer] 10/21/2024 14:39:21 OBGyn Episode No OBEpisode recorded.
--- OUTSIDE RECORDS SUMMARY | 2025-05-22 08:49 | XMS_ITS | Clinical Summary ---
Author Organization [address] [place] [address] [place] [phone] Phone Care Team Providers Care Corporate Controller Name Role Phone Niurka Aparicio MD Primary [...] Encounters Date Type Department Care Team Description 04/30/2025 2:00 PM EST Office Visit Adult Medicine - [place] [address] [place] [phone] Niurka Mcaias MD Routine general medical examination at a health care facility (Primary Dx); Needs flu shot; Primary hypertension; Cervical radiculopathy at 04/26/2025 7:03 AM EST - 04/26/2025 11:59 PM EST [facility] [address] [place] [phone] Encounter for screening mammogram for breast cancer Discharge Disposition: Home or Self Care 04/19/2025 9:55 AM EST - 04/19/2025 11:59 PM EST Hospital Encounter [facility] Xray [address] [place] [phone] Cervicalgia; Radiculopathy, cervical region Discharge Disposition: Home or Self Care from Last 3 Months Immunizations Immunization Administration Dates Next Due Influenza Quadravalent, MDCK , 0.5ml, preservative free (Flucelvax) 6mo and older 05/12/2021,03/29/2020,04/14/2019 Influenza trivalent, 0.5mL ( Fluad) 65yo and older 04/30/2025,05/07/2023,03/30/2022 Influenza trivalent, 0.5mL ( Fluzone High-dose) 65yo and older 05/07/2023,03/30/2022 Influenza trivalent, 0.5mL, preservative free (Fluarix; FluLaval; Fluzone) ages 6mo and older (Afluria) 3 years and older 03/08/2013 Influenza trivalent, with pr eservative (Fluzone; Afluria) 6mo and older 03/17/2024,03/08/2013 Pneumococcal conjugate 20 va lent (Prevnar 20, PCV 20) 2mo and older 05/27/2023 RSV, bivalent, protein subun it RSVpreF, 0.5mL, Preservative Free (Arexvy) 50yo and older 05/27/2023 Tdap Tetanus diptheria acell ular pertussis (Boostrix; Adacel) 7yo and older 12/10/2017 Zoster recombinant (Shingrix ) 19yo and older 06/23/2020,04/05/2020 Surgical History Surgery Date Site/Laterality Comments SECTION PROCEDURE: HISTORICAL DELIVERY; COMMENT: x 3 UPPER GASTROINTESTINAL ENDOSCOPY 09/30/2019 PROCEDURE: ID UPPER GI ENDOSCOPY PERFORMED; COMMENT: [facility]; 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 STOMACH SURGERY 03/09/2016 PROCEDURE: ID UNLISTED PROCEDURE STOMACH; COMMENT: Sleeve gastrectomy; Dr. Mcwilliams CARPAL TUNNEL RELEASE Bilateral PROCEDURE: HISTORICAL CARPAL TUNNEL REL FOOT SURGERY Right PROCEDURE: HISTORICAL FOOT SURGERY KNEE SURGERY Right PROCEDURE: HISTORICAL KNEE SURGERY; COMMENT: knee replacement NECK SURGERY PROCEDURE: HISTORICAL NECK SURGERY; COMMENT: fusion c5-c6 ABDOMINAL SURGERY PROCEDURE: HISTORICAL ABDOMINAL SURGERY; COMMENT: abdominoplasty TOTAL KNEE ARTHROPLASTY PROCEDURE: ID ARTHRP KNE CONDYLE&PLATU MEDIAL&LAT COMPARTMENTS OTHER SURGICAL [...] for your loved ones. For example, child development consultant or elderly care for an older adult? [...] 9:30 AM EST Office Visit Adult Medicine [facility] [address] [place] [phone] Niurka Aparicio MD [address] [place] [address] 08/05/2025 9:45 AM EST Office Visit Bariatric Surgery - [place] [address] [place] [phone] Bijan Mcwilliams MD [address] [place] [phone] Health Maintenance Due Date Last Done Comments COVID-19 Vaccine ( season) 2025 Hypertension/CHF/CAD Annual BMP Blood Test 10/12/2025 10/12/2024, [...] Patients Completed 05/27/2023 Depression Screening Completed 12/07/2024 Influenza Vaccine Completed 04/30/2025, , 05/07/2023, Additional history exists HIB Vaccines Aged Out No longer eligi [...] this topic Medical Devices Implanted Type Area Tmd Teacher Assistant Device Identifier Shelf Expiration Date Model / [...] year. [facility]amm[facility] location[facility] [address], [address] -------- FINAL REPORT -------- Dictated By: Dionicio Gómez Dictated Date: 04/26/2025 07:39 ET Assigned Physician: Dionicio Gómez Reviewed and Electronically Signed By: Dionicio Gómez Signed Date: 04/26/2025 08:34 ET Workstation ID: [id number] Transcribed By: Self Edit Transcribed Date: 04/26/2025 07:50 ET Narrative 04/26/2025 8:34 AM EST EXAM: SCREENING MAMMOGRAPHY, BILATERAL HISTORY: SCREENING. Family history of breast cancer, sister diagnosed age 50. COMPARISON: 08/24/23, 07/11/22, 07/04/21 TECHNIQUE: Synthesized CC and MLO projections of each breast. Tomosynthesis of each breast in the CC and MLO projections. ADDITIONAL IMAGING: None Computer-aided detection was employed with the [employer] AI 3-D. TISSUE DENSITY: There are [...] None Computer-aided detection was employed with the [employer] AI 3-D. TISSUE DENSITY: There are [...] year. [facility]amm[facility] location[facility] [address], [address] -------- FINAL REPORT -------- Dictated By: Dionicio Gómez Dictated Date: 04/26/2025 07:39 ET Assigned Physician: Dionicio Gómez Reviewed and Electronically Signed By: Dionicio Gómez Signed Date: 04/26/2025 08:34 ET Workstation ID: [id number] Transcribed By: Self Edit Transcribed Date: 04/26/2025 [...] Signed Date: 04/19/2025 12:39 ET Workstation ID: [id number] Transcribed By: Self Edit Transcribed Date: 04/19/2025 [...] Signed Date: 04/19/2025 12:39 ET Workstation ID: [id number] Transcribed By: Self Edit Transcribed Date: 04/19/2025 12:34 ET us Darrin Leyva DO IMG XR PROCEDURES Final Result * LDL cholesterol, direct (10/12/2024 2:08 PM EDT) LDL Direct 100 <=100 mg/dL LAB CHEMISTRY METHOD 10/12/2024 9:20 PM EDT [facility] Blood Venous blood specimen / Unknown Venipuncture / Unknown 10/12/2024 2:08 PM EDT 10/12/2024 2:08 PM EDT us Niurka Aparicio MD LAB BLOOD ORDERABL ES Final Result [facility] [address] [place] [address], * (ABNORMAL) Comprehensive metabolic panel (10/12/2024 2:08 PM EDT) Sodium 140 133 - 145 mmol/L LAB CHEMISTRY METHOD 10/12/2024 9:21 PM [facility] Potassium 4.5 3.5 - 5.5 mmol/L LAB CHEMISTRY METHOD 10/12/2024 9:21 PM [facility] Chloride 108 96 - 110 mmol/L LAB CHEMISTRY METHOD 10/12/2024 9:21 PM [facility] CO2 27 21 - 32 mmol/L LAB CHEMISTRY METHOD 10/12/2024 9:21 PM [facility] Anion Gap 5 3 - 11 LAB CHEMISTRY METHOD 10/12/2024 9:21 PM [facility] Glucose 54(L) 70 - 100 mg/dL LAB CHEMISTRY METHOD 10/12/2024 9:21 PM [facility] BUN 17 5 - 25 mg/dL LAB CHEMISTRY METHOD 10/12/2024 9:21 PM [facility] Creatinine 0.72 0.50 - 1.10 mg/dL LAB CHEMISTRY METHOD 10/12/2024 9:21 PM [facility] eGFR 92 >=60 mL/min/1. 73m2 LAB CHEMISTRY METHOD 10/12/2024 9:21 PM [facility] Comment:Calculation based on the Chronic Kidney Disease Epidemiology Collaboration (CKD-EPI) equation refit without adjustment for race. BUN/Creatinine Ratio 23.6 LAB CHEMISTRY METHOD 10/12/2024 9:21 PM [facility] Calcium 9.7 8.5 - 10.5 mg/dL LAB CHEMISTRY METHOD 10/12/2024 9:21 PM [facility] AST (SGOT) 19 10 - 42 unit/L LAB CHEMISTRY [facility] ALT (SGPT) 45 10 - 60 unit/L LAB CHEMISTRY METHOD 10/12/2024 9:21 PM EDT [facility] Alkaline Phosphatase 105 42 - 121 unit/L LAB CHEMISTRY METHOD 10/12/2024 9:21 PM EDT [facility] Total Protein 6.4 6.0 - 8.0 g/dL LAB CHEMISTRY METHOD 10/12/2024 9:21 PM EDT [facility] Albumin 3.5 3.2 - 5.0 g/dL LAB CHEMISTRY METHOD [facility]24 [facility] Total Bilirubin 0.4 0.0 - 1.4 mg/dL LAB CHEMISTRY METHOD 10/12/2024 9:21 PM EDT [facility] Blood Venous blood specimen / Unknown Venipuncture / Unknown 10/12/2024 2:08 PM EDT 10/12/2024 2:08 PM EDT us Niurka Aparicio MD LAB BLOOD ORDERABL ES Final Result [facility] [address] [place] [address], * COLONOSCOPY Anesthesia - MAC; [facility] [...] pathology results. Narrative 06/19/2024 11:17 AM EST [facility] GI Patient Name: Florencio Montiel Procedure Date: 06/19/2024 10:45 AM Date of : 1955 Age: 69 Gender: Female Note Status: Finalized Attending MD: Justina Grant DO, [id number] Procedure Date No Time: 06/19/2024 Procedure: Colonoscopy [...] the physician, the nurse, the anesthesiologist, the spring machine operator and the avionics systems technician in the pre-procedure area in the [...] retroflexion views. Procedure Code(s): --- Professional --- 96761, Colonoscopy, flexible; with removal of tumor(s), polyp(s), or other lesion(s) by snare technique Diagnosis Code(s): --- Professional --- Z12.11, Encounter for screening for malignant neoplasm of colon D12.5, Benign neoplasm of sigmoid colon K64.9, Unspecified hemorrhoids CPT copyright 2020 [employer]. All rights reserved. The codes documented in this report are preliminary and upon core carrier review may be revised to meet current compliance requirements. JUSTINA Grant DO 06/19/2024 11:17:00 AM This report has been signed electronically.Justina Grant DO Number of Addenda: 0 Note Initiated On: 06/19/2024 10:45 AM Scope Withdrawal Time: 0 hours 6 minutes 2 seconds Scope In: 11:06:26 AM Scope Out: 11:14:50 AM Endoscopy Department at [facility] - [address] [place] [phone] Procedure Note Justina Grant DO - 06/19/2024 [facility] GI Patient Name: Florencio Montiel Procedure Date: 06/19/2024 10:45 AM Date of : 1955 Age: 69 Gender: Female Note Status: Finalized Attending MD: Justina Grant DO, [id number] Procedure Date No Time: 06/19/2024 Procedure: Colonoscopy [...] the physician, the nurse, the anesthesiologist, the spring machine operator and thetechnician in the pre-procedure area in [...] retroflexion views. Procedure Code(s): --- Professional --- 59638, Colonoscopy, flexible; with removal of tumor(s), polyp(s), or other lesion(s) by snare technique Diagnosis Code(s): --- Professional --- Z12.11, Encounter for screening for malignantneoplasm of colon D12.5, Benign neoplasm of sigmoid colon K64.9, Unspecified hemorrhoids CPT copyright 2020 [employer]. All rights reserved. The codes documented in this report are preliminary and upon core carrier reviewmay be revised to meet current compliance requirements. JUSTINA Grant DO 06/19/2024 11:17:00 AM This report has been signed electronically.Justina Grant DO Number of Addenda: 0 Note Initiated On: 06/19/2024 10:45 AM Scope Withdrawal Time: 0 hours 6 minutes 2 seconds Scope In: 11:06:26 AM Scope Out: 11:14:50 AM Endoscopy Department at [facility] - [address] [place] [phone] IMPRESSION: - One 6 mm polyp in [...] PM EDT Narrative 12/13/2022 5:15 PM EDT [facility] Diagnostic Imaging Department [address] [place] [id number] Patient: FLORENCIO MONTIELO.B./Age/Sex: 1955 - 67 - F Unit#: [id number] Location/Status: SPDIMAM/REG CLI [facility]em[facility] Ordering Physician: JUDAH READ CNM [facility] Dexa Axial Skeleton - 12/13/22 - [id number] Report Status:Signed History: Low estrogen state due to menopause. Comparison: 11/21/20 Findings: Bone densitometry is performed utilizing dual energy x-ray absorptiometry (DXA) in the [employer] unit. The lumbar spine and proximal femora [...] 5.4 percent Hip 0.7 percent. IMPRESSION: Osteopenia. [id number] Dictating Physician: MEGAN WRAY MD Electronically Signed by: MEGAN WRAY MD Dic Date/Time: 12/13/221713 Sign date/Time: 12/13/221714 Procedure Note Megan Wray MD - 07/23/2023 [facility] Diagnostic Imaging Department [address] [place] [address] Patient: FLORENCIO MONTIEL/Age/Sex: 1955 - 67 - F Unit#: [id number] Location/Status: SPDIMAM/REG CLI Mnemonic[facility] Ordering Physician: JUDAH READ CNM [facility] Dexa Axial Skeleton - 12/13/22 - 3591 Report Status:Signed History: Low estrogen state due to menopause. Comparison: 11/21/20 Findings: Bone densitometry is performed utilizing dual energy x-ray absorptiometry(DXA) in the S[employer] unit. The lumbar spine and proximal femora [...] Osteoporotic 5.4percent Hip 0.7 percent. IMPRESSION: Osteopenia. [id number] Dictating Physician: MEGAN WRAY MD Electronically Signed by: MEGAN WRAY MD Dic Date/Time: 12/13/221713 Sign date/Time: 12/13/221714 Judah Read CNM IMG BI PROCEDURES Final Resul t * Hepatitis C Screening (04/14/2019) Hepatitis C Screening abstracted Historical Provider HEALTH MAINTENANCE Final Result from Last 3 Months or Most Recently Relevant to Health Maintenance Insurance [facility] MEDIC[facility] Member Subscriber Plan / Payer (Ef fective 2022-Present) Name:Florencio Montiel Relation to Subscriber:Self Name:Florencio Montiel Payer ID:[id number] Group ID:[id number] Type:Not on file Address: [place] [address] [address] [phone] Advance Directives Documents on File Type Date Recorded 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
--- OUTSIDE RECORDS SUMMARY | 2025-05-22 08:49 | XMS_ITS | Clinical Summary ---
Author Organization [employer] [facility] Prior to 11/14/24 Address [address] [place] [address] Care Team Providers Care Infection Control Specialist Name Role Phone Niurka Aparicio MD [...] age to complete this topic Care Teams Infection Control Specialist Relationship Specialty Start Date End Date Niurka Aparicio MD PCP - General Internal Medicine 05/22/19
== END 2025-05-22 08:47 | disposition home or self-care (01) ==
LOC: HO.MRI 08:46
PROVIDERS: PCP Internal Medicine; Visit Provider Physical Medicine & Rehabilitation
DX: M54.12 Radiculopathy, cervical region (principal); M54.2 Cervicalgia
CPT/HCPCS: 72141

== ENCOUNTER 2025-05-27 14:44 | Outpatient (AMB) | payer OTHER, SELFPAY ==
--- OUTSIDE RECORDS SUMMARY | 2024-03-26 06:30 | XMS_ITS | Encounter Summary ---
Author Organization [employer] Address [address] [place] [address] Care Team Providers Care Supervisor Litharge Name Role Phone Niurka Aparicio MD Primary Care Prov ider Encounter Details Date Type Department Care Team (Late st Contact Info) Description 03/26/2024 7:30 AM EDT Hospital Encounter TH HISTORIC ENCOUNTERS EASTERN CONVERSION ONLY Darrin Leyva DO [address] [facility] [address] [place] [address] Social History Tobacco Use Types Packs/Day Years [...] care for your loved ones. For example, early childhood associate teacher or elderly care for an older adult? [...] 9:30 AM EST Office Visit Adult Medicine [facility] [address] [place] [address] Niurka Aparicio MD [address] [place] [address] 08/05/2025 9:45 AM EST Office Visit Bariatric Surgery - [address] [place] [phone] Bijan Mcwilliams MD [address] [place] [address] documented as of this encounter Visit Diagnoses Not on filedocumented in this encounter Care Teams Supervisor Litharge Relationship Specialty Start Date End Date Niurka Aparicio MD [address] [place] [address] PCP - General Internal Medicine 06/03/12 documented as of this encounter
--- NOTE | 2025-05-27 14:52 | A.PHYSOV ---
Vital Signs 05/27/25 14:58 Height 5 ft 5 in Weight 163 lb BMI 27.1 Intake Visit Reasons: 1M followup Intake Note: Patient is a 70 year old female in office today for a follow up after Right sacroiliac joint injection on 05/10/25 and cervical mri results. Airframe Technician Required: No Allergies No Known Allergies Allergy (Verified 05/27/25 14:59) HPI Comments Details: History of Present Illness The patient is a 70-year-old female presenting with persistent neck and lower back pain. She has been on oxycodone 5 mg four times a day as needed, which provides a 40 to 50% reduction in pain, improving her quality of life and allowing her to work. She reports muscle cramping in the lower extremities, which has improved with magnesium, vitamin B100 complex, CoQ10, and turmeric supplementation. Despite these interventions, cramps are still present but less frequent. The patient has experienced excellent results with sacroiliac joint injections. However, she is now experiencing increasing neck pain, right scapular and arm pain, with associated numbness and tingling in the right upper extremity. She has been performing physician-guided home cervical stretching exercises. Cervical spine x-rays from May 09, 2022, and updated x-rays from April 19, 2025, were reviewed, showing evidence of previous C5 through C7 anterior cervical discectomy and fusion with anterior plating, reversal of cervical lordosis, and a fractured screw at the C7 level. She was doing physician guided home exercises. Unfortunately continues to report persistent pain in her right arm. She also reports pain in her right shoulder with overhead activities. She returns today after repeated right SI joint injection on 05/10/2025. Lower back pain is feeling better. Injection was done and there conscious sedation at [facility]. As per patient, in the future she would like to get them done in the office. Cervical spine MRI was obtained on 05/22/2025, please see below for complete results described. Images were independently reviewed. She had good relief with right shoulder injection. Pain Description - Onset: Persistent neck and lower back pain - Quality: Pain reduced by 40 to 50% with medication - Location: Neck, lower back, right scapular, and arm - Radiation: Right scapular and arm pain - Exacerbating factors: Not explicitly mentioned - Relieving factors: Oxycodone, SI joint injections, supplements - Interference: Pain impacts quality of life and work ability Results - Imaging: Cervical spine x-rays from May 09, 2022, and April 19, 2025, showing C5 through C7 anterior cervical discectomy and fusion, reversal of cervical lordosis, and fractured screw at C7 Cervical spine MRI was done on 05/22/2025 consistent with C5 through C7 anterior cervical diskectomy and fusion moderate to severe left foraminal stenosis at the C4-C5 level zhuk-jx-yaqvppsz left more than right foraminal stenosis at the C7-T1 level [facility] Medical History (Updated 05/27/25 @ 16:06 by Darrin Leyva DO) 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 Post laminectomy syndrome Chronic pain syndrome Lumbar radiculitis Anxiety Insomnia History of exam under anesthesia with epidural steroid injection HTN (hypertension) Arthritis HLD (hyperlipidemia) GERD (gastroesophageal reflux disease) Sacroiliac dysfunction Surgical History S/P gastric sleeve procedure (~2015) S/P cholecystectomy Status post total right knee replacement Social History Household Members: None Housing: Apartment Are you a primary district manager primary care sales to a significant other at home: No Do you presently have visiting nurse or other home services: No Alcohol intake: current Alcohol intake frequency: does not drink Patient Tobacco Use Status: Never used Tobacco e-Cigarette/Vaping Use: Never Used Second Hand Smoke Exposure: No Current occupational status: retired Review of Systems Narrative Review of Systems - Musculoskeletal: Reports persistent neck and lower back pain, right scapular and arm pain - Neurological: Reports numbness and tingling in the right upper extremity Right shoulder pain, denies change in bowel bladder habits, denies fever or chills, denies uncontrolled depression or suicidal ideation. Physical Exam Exam Exam: Physical Exam Patient appears to be in no acute distress, appropriately conversant and oriented. She was able to ambulate without antalgia. She was able to perform heel walk and toe walk. Neurologic examination of upper and lower extremities was nonfocal. Negative Dexter and Neer signs in the right shoulder. Normal range of motion in the right shoulder. Negative drop-arm test. Spurling maneuver was positive on the right side. Lhermitte sign was negative. Patient demonstrated no upper motor neuron signs. SI provocative maneuvers were positive bilaterally including SI compression test, [place]ib[place] and fibere signs. Dural tension signs were negative. She was able to perform heel walk and toe walk with support for balance. Vital Signs: BMI result Body Mass Index 27.1 Assessment & Plan Assessment & Plan (1) Cervical radiculitis: Code(s): M54.12 - Radiculopathy, cervical region Category: Medical (2) Neck pain: Code(s): M54.2 - Cervicalgia Category: Medical (3) Rotator cuff impingement syndrome of right shoulder: Code(s): M75.41 - Impingement syndrome of right shoulder Category: Medical (4) Sacroiliac dysfunction: Code(s): M53.3 - Sacrococcygeal disorders, not elsewhere classified Category: Medical (5) Sacroiliac inflammation: Code(s): M46.1 - Sacroiliitis, not elsewhere classified Category: Medical (6) Post laminectomy syndrome: Code(s): M96.1 - Postlaminectomy syndrome, not elsewhere classified Category: Medical (7) Lumbar radiculitis: Code(s): M54.16 - Radiculopathy, lumbar region Category: Medical (8) Chronic pain syndrome: Code(s): G89.4 - Chronic pain syndrome Category: Medical (9) prison use of opioid: Code(s): Z79.891 - terminal carman (current) use of opiate analgesic Category: Medical Plan Pain Management - Affect: Pain impacts quality of life positively with medication - Analgesia: Oxycodone 5 mg four times a day as needed, 40 to 50% pain reduction - Adverse Effects: Not explicitly mentioned - Activities of Daily Living: Able to work, improved quality of life - Aberrant Drug Related Behaviors: None reported Plan Patient was informed and verbally consented to the use of an ambient scribe for clinic note documentation during this visit. 1. Chronic Neck Pain The patient will continue with oxycodone 5 mg four times a day as needed for pain management, which has been effective in reducing pain by 40 to 50%. Based on her cervical MRI, I do not recommend any cervical procedures at this time. 2. Chronic Lower Back Pain The patient has experienced excellent results with sacroiliac joint injections, which will be considered for future management. SI joint injections will be considered in the future as necessary. I do not recommend any procedures at this time 3. Muscle Cramps In Lower Extremities The patient will continue with magnesium, vitamin B100 complex, CoQ10, and turmeric supplementation, which have improved the frequency of cramps. Discussion Notes During the visit, we discussed the continuation of oxycodone for pain management, which has been effective. We also reviewed the need for a cervical spine MRI to further investigate the cause of the patient's neck and arm symptoms. The patient was informed about the benefits of ongoing supplementation for muscle cramps and the potential for future sacroiliac joint injections. Patient Instructions - Continue taking oxycodone as prescribed for pain management. - Maintain supplementation with magnesium, vitamin B100 complex, CoQ10, and turmeric. - Schedule and complete the cervical spine MRI as discussed. - Follow up for further evaluation and management based on MRI results. Coding Level of Care Code Est Pt Level 4 (93275) Add On Problem Visit Only Diagnoses Cervical radiculitis M54.12 Neck pain M54.2 Rotator cuff impingement syndrome of right shoulder M75.41 Sacroiliac dysfunction M53.3 Sacroiliac inflammation M46.1 Post laminectomy syndrome M96.1 Lumbar radiculitis M54.16 Chronic pain syndrome G89.4 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 Z79.891
[2025-05-27 14:58] VITALS: BMI 27.1
--- OUTSIDE RECORDS SUMMARY | 2025-05-27 22:16 | XMS_ITS | Clinical Summary ---
Author Organization [facility] Prior to 11/14/24 Address [address] [place] [address] Care Team Providers Care Senior Publications Specialist Name Role Phone Niurka Aparicio MD [...] age to complete this topic Care Teams Senior Publications Specialist Relationship Specialty Start Date End Date Niurka Aparicio MD PCP - General Internal Medicine 05/22/19
--- OUTSIDE RECORDS SUMMARY | 2025-05-27 22:17 | XMS_ITS | Data Portability ---
Author Organization [facility], [facility] Address [address] [place] [address] Care Team Providers Care Insemination Worker Name Role Phone HIM CCA OTHER BROOK LIM Primary Care Provider Assessment Encounter Date Assessment Date Assessment LastModified by Organization Details LastModified Time 10/15/2023 10/15/2023 I provided real -time medical direction via phone for this encounter and was available for additional phone-based assistance as needed. I have reviewed and agree with the Assessment and Plan as documented by the Women'S Lacrosse Coach. Patient given the opportunity to ask questions. Our service contacted for an assessment of: Chronic BACK pain As per above, patient with hx of chronic pain. No new or worsening red S&S. No new bowel/bladder symptoms. No new gait abnl. No new neurological signs, symptoms or deficits. Per paramedical aide on the scene, VSS, non-toxic. Neuro grossly [...] Assessment and Plan as documented by the Women'S Lacrosse Coach. Patient given the opportunity to ask questions. Our service contacted for an assessment of: Chronic right shoulder pain As per above, patient with hx of chronic right shoulder pain. No new or worsening red S&S. No new deficits. Per paramedical aide on the scene, VSS, non-toxic. Neuro grossly [...] Assessment and Plan as documented by the Women'S Lacrosse Coach. I provided real-time medical direction via phone [...] recorded. Lab rapid flu (A+B) 2024 025 [facility], [address] [place] [address], [id number] 11:29:05 rapid SARS CoV 2 Ag, QL IA, respiratory specimen [address], [phone] 5 11:29:06 Referral None recorded. Procedures None recorded. Surgeries None recorded. Imaging None recorded. Medication Orders ketorolac 30 mg/mL (1 mL) injection solution 2024 025 [email or web address] [facility], [address] [place] [address], [id number], 5 20:11:17 ketorolac 30 mg/mL injection solution 2023 024 [email or web address] [facility], [address] [place] [address], [id number], 4 16:36:03 ketorolac 30 mg/mL injection solution 2023 024 [email or web address] Not available 4 17:14:17 ketorolac 30 mg/mL [...] Details Last Updated DateTime 5 172.72 cm 39540.8 g 74 /min 98 % 14 /min 97.8 [degF] 156/88 mm[Hg] Not Available [facility] - production 5 20:05:30 Date Recorded Body weight Body height Heart rate Oxygen saturation Respiratory rate Systolic And Diastolic Provider Name and Address Organization Details Last Updated DateTime 4 63631.1 12 g 165.1 cm 76 /min 100 % 16 /min 187/77 mm[Hg] Not Available [employer] 4 11:52:55 Date Recorded Respiratory rate Body weight Body height Heart rate Oxygen saturation Body temperature Systolic And Diastolic Provider Name and Address Organization Details Last Updated DateTime 4 16 /min 89747.1 12 g 165.1 cm 72 /min 99 % 98.4 [degF] 170/90 mm[Hg] Not Available [employer] 4 17:12:35 Date Recorded Body temperature Heart rate Oxygen saturation Respiratory rate Systolic And Diastolic Provider Name and Address Organization Details Last Updated DateTime 5 98.7 [degF] 81 /min 99 % 18 /min 164/98 mm[Hg] Not Available [employer] 5 10:32:21 Date Recorded Respiratory rate Heart rate Body temperature Body height Oxygen saturation Body weight Systolic And Diastolic Provider Name and Address Organization Details Last Updated DateTime 4 14 /min 72 /min 98.4 [degF] 162.56 cm 96 % 22694.8 g 136/82 mm[Hg] Not Available [employer] 4 16:33:18 Social History None recorded. Functional [...] [id number] Olman Clemons MD Main - [facility] [address] [place] [phone] 03/16/2022 18:05:07 03/16/2022 18:09:29 [id number] Roxana Rivas MD Main - [facility] [address] [place] [phone] 10/15/2023 11:52:53 10/15/2023 20:01:58 Chronic low back pain [id number] M54.50 [id number] [facility] [address] [place] [phone] 10/16/2023 17:12:26 10/17/2023 11:17:57 Low back pain [id number] M54.50 68 year old female being evaluated [...] assessment and plan as documented by the paramedical aide. I provided real-time medical direction for this encounter and was immediatel y available to provide additional phone-base d assistance as needed. We discussed the diagnostic uncertaint y of home visits and associated risks. We discussed the need to seek care urgently/e mergently in the setting of any new or worsening symptoms. [id number] [facility]ana [facility]ivas [facility] [address] [place] [phone] 03/10/2024 21:25:50 06/29/2024 21:51:35 Sialoadenitis [id number] K11.20 [id number] BERTIN [facility]ADDOX MD [facility] [address] [place] [phone] 04/01/2024 16:33:16 04/01/2024 21:30:51 Low back pain [id number] M54.50 Evaluation in the field was performed by my paramedical aide colleague, as noted above, I provided real-time [...] of breath (SOB), or any other concerns. [id number] Roxana Rivas MD Main - [facility] [address] [place] [phone] 08/12/2024 20:05:28 08/13/2024 00:31:12 Pain of shoulder region 23234523 M25.519 [id number] Ethan Gusman MD Main - [facility] [address] [place] [phone] 10/21/2024 10:32:14 10/21/2024 18:03:20 Congestion of nasal sinus [id number] R09.81 [id number] Health Concerns Section Related Observation LastModified by Organization Detai ls LastModified Time None Recorded Concern Status LastModified by Organization Details LastModified Time None Recorded Advance Directives Directive None Recorded Payers Insurance Date Sequence Insurance Name Policy Number Policy Batista Covered Member ID Batista Member ID Guarantor Name 06/29/2024 1 [facility] - DOS PRIOR TO 2022 - DUAL ELIGIBLE (MEDICARE REPLACEMENT/AD VANTAGE - HMO) Zaira Montiel [id number] Zaira Montiel 10/21/2024 1 [facility] - DOS ON OR AFTER 2022 - DUAL ELIGIBLE - LONG-TERM OPTIONS AND ONE CARE (MEDICARE REPLACEMENT/AD VANTAGE - HMO) Zaira Montiel [id number] Zaira Montiel Notes Date Note Type Note [...] Pain PMH: Hypertension Allergies: No Known Comments: Terra [place]ta Roofer Helper verified the member's name//address and phone number. Education provided on the response time and the member was advised to monitor reported s/s and seek emergency treatment if needed.Member reports reports lower back pain -Reports twisting wrong. Increased pain with ambulation - Member is requesting pain management options - Concerns expressed and ER treatment was declined. ...................... ...................... ...................... ...................... ...................... ...................... ......... Women'S Lacrosse Coach Note From Eric Rashid: Pt reports t wisting her back when trying to pick something up yesterday. Pt took a Percocet which upset her stomach. Pt requesting IM ketorolac. Pt does not have any contraindications for ketorolac. [facility] contacted and pt treated with ketorolac 30 mg IM, left deltoid. Pt advised to f/u with PCP and to seek emergent medical care for new or worsening sx, which are reviewed with her. ...................... ...................... ...................... ...................... ...................... ...................... ......... Disposition: Fulfilled Roxana Rivas MD [address] [place] [address],[address], [place], [phone], [employer] [facility] 10/15/2023 11:54:58 10/16/2023 text/html CRC Nurse Triage Notes (Portia Weeks): Chief Complaints: Pain PMH: Hypertension Allergies: Unknown Comments: Chronic lower back pain. [facility] visit yesterday for same chronic pain, received Toradol injection with relief. Today member reports right lower back pain wrapping around to right lower abdomen. No acute injuries reported. ...................... ...................... ...................... ...................... ...................... ...................... ......... Women'S Lacrosse Coach Note From Federico Amos: [facility] visit for female patient with back pain. [...] spasm. V/S taken. Pt afebrile. Consulted with [facility] Dr. Leal who prescribed 30 mg IM toradol and encouraged pt to follow up with PCP. Reviewed red flags for ED. Pt education provided. ...................... ...................... ...................... ...................... ...................... ...................... ......... Disposition: Fulfilled Shavon Leal MD [address] [place] [address],[address], [place], [phone], [place] 10/16/2023 18:48:25 04/01/2024 text/html ROS as noted in the [facility] CRC Nurse Triage Notes (Elsie Landaverde): Reason For Request: PT requesting help with pain for lower back, right side Chief Complaints: Pain PMH: Hypertension Allergies: No Known Pain Assessment: Level 10 out of 10 Comments: Terra Cotta Roofer Helper verified the member's name//address and phone number. [...] ...................... ...................... ...................... ...................... ...................... ...................... ......... Women'S Lacrosse Coach Note From Troy Maurer: Patient alert and [...] t pink warm dry secondary exam unremarkable. [facility] orders Toradol 30 mg IM. Administered is noted without complication. Red flags, patient education discussed. ...................... ...................... ...................... ...................... ...................... ...................... ......... Disposition: Stormy MADDOX MD [address] [facility],[address], [place], [phone], [place] 04/01/2024 17:27:09 08/12/2024 text/html CRC Nurse Triage [...] ...................... ...................... ...................... ...................... ...................... ...................... ......... Women'S Lacrosse Coach Note From Troy Maurer: Patient alert and oriented complains of acute on chronic right shoulder pain. Patient complains of bilateral shoulder pain, right is worse. Patient denies recent trauma or any other pain or complaints. Patient denies tingling or numbness, weakness, unequal decorator hand, or any other. Patient denies kidney or bleeding problems. Reports Tylenol does not help that much. Patient requests Toradol injection. Patient pink warm dry good CSM s in upper extremities. Secondary exam unremarkable. [facility] orders Toradol 30 mg IM. Administered as ordered using five rights without complication. Patient appreciative a visit, red flags, patient education discussed. [facility] Medication Orders: ketorolac 30 mg/mL (1 mL) injection solution: Administered ...................... ...................... ...................... ...................... ...................... ...................... ......... [facility] Consulted: Roxana Rivas ...................... ...................... ...................... ...................... ...................... ...................... ......... Disposition: Fulfilled Roxana Rivas MD [address] [place] [address],[address] [facility], [place], [phone], [place] 08/12/2024 20:42:23 10/21/2024 text/html CRC Nurse Triage [...] signs of when to seek emergency care. Women'S Lacrosse Coach Organization Information for Dariusz العراقي Business Legal Name: [employer]. Address: [address] [place] [address], Wood Type Cutter: Juanjose Arizmendi MD JOVANI No.: [id number] Women'S Lacrosse Coach POC Test Results from Dariusz العراقي [employer] Rapid COVID antigen (10:30:30) COVID: - Attachments uploaded as part of this test result can be found under Documents section. Rapid influenza antigen (10:30:30) Flu: - Attachments uploaded as part of this test result can be found under Documents section. ...................... ...................... ...................... ...................... ...................... ...................... ......... Women'S Lacrosse Coach Note From Dariusz العراقي: Encountered patient conscious, [...] and flu swabs performed, both resulted negative; [facility] notified. Skin warm, dry and of appropriate color for ethnicity. Head and neck, free of trauma and edema.-JVD. Breath sounds present, clear and equal bilaterally. Abdomen is soft, non-tender, and non-distended. Extremities are free of trauma and edema. [facility] contacted: [facility] states that time from symptoms until appointment has not been long enough to warrant the use of antibiotics as the origin of infection has not been determined between bacterial or viral. [facility] states that usually within 1 to 2 weeks is when treatment with antibiotics are warranted as most sinus infections can resolve on their own with supportive care. Patient was encouraged to attempt to schedule an appointment with her primary care or to contact [facility] for a subsequent visit if her symptoms do not resolve. Patient verbalizes understanding of the plan and states she is comfortable with remaining home at this time. [facility] Lab Orders: rapid flu (A+B): Performed rapid SARS CoV 2 Ag, QL IA, respiratory specimen: Performed ...................... ...................... ...................... ...................... ...................... ...................... ......... [facility] Consulted: Ethan Gusman ...................... ...................... ...................... ...................... ...................... ...................... ......... Disposition: Fulfilled Ethan Gusman MD [address] [facility],[address], [place], [address], [employer] [facility] [employer] 10/21/2024 14:39:21 OBGyn Episode No OBEpisode recorded.
--- OUTSIDE RECORDS SUMMARY | 2025-05-27 22:17 | XMS_ITS | Clinical Summary ---
Author Organization [address] [place] [address] [place] [phone] Phone Care Team Providers Care Debt Counselor Name Role Phone Niurka Aparicio MD Primary [...] PM EST Office Visit Adult Medicine - [facility] [address] [place] [phone] Niurka Macias MD Routine general medical examination at a health care facility (Primary Dx); Needs flu shot; Primary hypertension; Cervical radiculopathy at 04/26/2025 7:03 AM EST - 04/26/2025 11:59 PM EST [facility] [address] [place] [phone] Encounter for screening mammogram for breast cancer Discharge Disposition: Home or Self Care 04/19/2025 9:55 AM EST - 04/19/2025 11:59 PM EST Hospital Encounter [facility] Xray [address] [place] [phone] Cervicalgia; Radiculopathy, cervical region Discharge Disposition: Home [...] x 3 UPPER GASTROINTESTINAL ENDOSCOPY 09/30/2019 PROCEDURE: AK UPPER GI ENDOSCOPY PERFORMED; COMMENT: [facility]; 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 STOMACH SURGERY 03/09/2016 PROCEDURE: AK UNLISTED PROCEDURE STOMACH; COMMENT: Sleeve gastrectomy; Dr. Mcwilliams CARPAL TUNNEL RELEASE Bilateral PROCEDURE: HISTORICAL CARPAL TUNNEL REL FOOT SURGERY Right PROCEDURE: HISTORICAL FOOT SURGERY KNEE SURGERY Right PROCEDURE: HISTORICAL KNEE SURGERY; COMMENT: knee replacement NECK SURGERY PROCEDURE: HISTORICAL NECK SURGERY; COMMENT: fusion c5-c6 ABDOMINAL SURGERY PROCEDURE: HISTORICAL ABDOMINAL SURGERY; COMMENT: abdominoplasty TOTAL KNEE ARTHROPLASTY PROCEDURE: AK ARTHRP KNE CONDYLE&PLATU MEDIAL&LAT COMPARTMENTS OTHER SURGICAL [...] for your loved ones. For example, child protective investigator or elderly care for an older adult? [...] 9:30 AM EST Office Visit Adult Medicine [facility] [address] [place] [phone] Niurka Aparicio MD [address] [place] [address] 08/05/2025 9:45 AM EST Office Visit Bariatric Surgery - [place] [address] [facility] [address] [place] [phone] Bijan Mcwilliams MD [address] [place] [phone] Health Maintenance Due Date Last Done Comments Drug Screen 1955 Non-Opioid Controlled Substance Agreement 1955 COVID-19 Vaccine ( season) 2025 Hypertension/CHF/CAD Annual [...] this topic Medical Devices Implanted Type Area Tube Winder Device Identifier Shelf Expiration Date Model / [...] Results * MG Mammo Digital Screening w [place] bilat (04/26/2025 7:28 AM EST) Anatomical Region [...] year. [facility]amm[facility] [address], [address] -------- FINAL REPORT -------- Dictated By: Dionicio Gómez Dictated Date: 04/26/2025 07:39 ET Assigned Physician: Dionicio Gómez Reviewed and Electronically Signed By: Dionicio Gómez Signed Date: 04/26/2025 08:34 ET Workstation ID: [id number] Transcribed By: Self Edit Transcribed Date: 04/26/2025 07:50 ET Narrative 04/26/2025 8:34 AM EST EXAM: SCREENING MAMMOGRAPHY, BILATERAL HISTORY: SCREENING. Family history of breast cancer, sister diagnosed age 50. COMPARISON: 08/24/23, 07/11/22, 07/04/21 TECHNIQUE: Synthesized CC and MLO projections of each breast. Tomosynthesis of each breast in the CC and MLO projections. ADDITIONAL IMAGING: None Computer-aided detection was employed with the On[employer] AI 3-D. TISSUE DENSITY: There are scattered [...] None Computer-aided detection was employed with the [employer] AI 3-D. TISSUE DENSITY: There are scattered [...] year. [facility]ammography location: [facility] [address], [address] -------- FINAL REPORT -------- Dictated By: Dionicio Gómez Dictated Date: 04/26/2025 07:39 ET Assigned Physician: Dionicio Gómez Reviewed and Electronically Signed By: Dionicio Gómez Signed Date: 04/26/2025 08:34 ET Workstation ID: [id number] Transcribed By: Self Edit Transcribed Date: 04/26/2025 [...] Signed Date: 04/19/2025 12:39 ET Workstation ID: [id number] Transcribed By: Self Edit Transcribed Date: 04/19/2025 [...] Signed Date: 04/19/2025 12:39 ET Workstation ID: [id number] Transcribed By: Self Edit Transcribed Date: 04/19/2025 12:34 ET us Darrin Leyva DO IMG XR PROCEDURES Final Result * LDL cholesterol, direct (10/12/2024 2:08 PM EDT) LDL Direct 100 <=100 mg/dL LAB CHEMISTRY METHOD 10/12/2024 9:20 PM EDT [facility] ([facility]) [facility] Blood Venous blood specimen / Unknown Venipuncture / Unknown 10/12/2024 2:08 PM EDT 10/12/2024 2:08 PM EDT Niurka Aparicio MD LAB BLOOD ORDERABL ES Final Result [facility] [address] [place] [address], [place] [phone] * (ABNORMAL) Comprehensive metabolic panel (10/12/2024 2:08 PM EDT) Sodium 140 133 - 145 mmol/L LAB CHEMISTRY METHOD 10/12/2024 9:21 PM [facility] Potassium 4.5 3.5 - 5.5 mmol/L LAB CHEMISTRY METHOD 10/12/2024 9:21 PM [facility] Chloride 108 96 - 110 mmol/L LAB CHEMISTRY METHOD 10/12/2024 9:21 PM [facility] CO2 27 21 - 32 mmol/L LAB CHEMISTRY METHOD 10/12/2024 9:21 PM [facility] Anion Gap 5 3 - 11 LAB CHEMISTRY METHOD 10/12/2024 9:21 PM [facility] Glucose 54(L) 70 - 100 mg/dL LAB CHEMISTRY METHOD 10/12/2024 9:21 PM [facility] BUN 17 5 - 25 mg/dL LAB CHEMISTRY METHOD 10/12/2024 9:21 PM [facility] Creatinine 0.72 0.50 - 1.10 mg/dL LAB CHEMISTRY METHOD 10/12/2024 9:21 PM [facility] eGFR 92 >=60 mL/min/1. 73m2 LAB CHEMISTRY METHOD 10/12/2024 9:21 PM [facility] Comment:Calculation based on the Chronic Kidney Disease Epidemiology Collaboration (CKD-EPI) equation refit without adjustment for race. BUN/Creatinine Ratio 23.6 LAB CHEMISTRY METHOD 10/12/2024 9:21 PM [facility] Calcium 9.7 8.5 - 10.5 mg/dL LAB CHEMISTRY METHOD 10/12/2024 9:21 PM [facility] AST (SGOT) 19 10 - 42 unit/L LAB CHEMISTRY METHOD 10/12/2024 9:[address] [facility] ALT (SGPT) 45 10 - 60 unit/L LAB CHEMISTRY METHOD 10/12/2024 9:[address] [facility] Alkaline Phosphatase 105 42 - 121 unit/L LAB CHEMISTRY METHOD 10/12/2024 9:[address] [facility] Total Protein 6.4 6.0 - 8.0 g/dL LAB CHEMISTRY METHOD 10/12/2024 9:[address] [facility] Albumin 3.5 3.2 - 5.0 g/dL LAB CHEMISTRY METHOD 10/12/2024 9:[address] [facility] Total Bilirubin 0.4 0.0 - 1.4 mg/dL LAB CHEMISTRY METHOD 10/12/2024 9:[address] [facility] Blood Venous blood specimen / Unknown Venipuncture / Unknown 10/12/2024 2:08 PM EDT 10/12/2024 2:08 PM EDT Niurka Aparicio MD LAB BLOOD ORDERABL ES Final Result [facility] [address] [place] [address], * COLONOSCOPY Anesthesia - [facility]; [facility] ENDOSCOPY (06/19/2024 11:16 AM [...] on pathology results. Narrative 06/19/2024 11:17 AM [facility] GI Patient Name: Florencio Ace Procedure Date: 06/19/2024 10:45 AM Date of : 1955 Age: 69 Gender: Female Note Status: Finalized Attending MD: Justina Grant DO, [id number] Procedure Date No Time: 06/19/2024 Procedure: Colonoscopy [...] the physician, the nurse, the anesthesiologist, the security sme and the irrigation service technician in the pre-procedure area in the [...] retroflexion views. Procedure Code(s): --- Professional --- 88536, Colonoscopy, flexible; with removal of tumor(s), polyp(s), or other lesion(s) by snare technique Diagnosis Code(s): --- Professional --- Z12.11, Encounter for screening for malignant neoplasm of colon D12.5, Benign neoplasm of sigmoid colon K64.9, Unspecified hemorrhoids CPT copyright 2020 [employer]. All rights reserved. The codes documented in this report are preliminary and upon catalyst operator gasoline review may be revised to meet current compliance requirements. JUSTINA Grant DO 06/19/2024 11:17:00 AM This report has been signed electronically.Justina Grant DO Number of Addenda: 0 Note Initiated On: 06/19/2024 10:45 AM Scope Withdrawal Time: 0 hours 6 minutes 2 seconds Scope In: 11:06:26 AM Scope Out: 11:14:50 AM Endoscopy Department at [facility] - [address] [place] [phone] Procedure Note Justina Grant DO - 06/19/2024 [facility] GI Patient Name: Florencio Ace Procedure Date: 06/19/2024 10:45 AM Date of : 1955 Age: 69 Gender: Female Note Status: Finalized Attending MD: Justina Grant DO, [id number] Procedure Date No Time: 06/19/2024 Procedure: Colonoscopy [...] the physician, the nurse, the anesthesiologist, the security sme and thetechnician in the pre-procedure area in [...] retroflexion views. Procedure Code(s): --- Professional --- 62929, Colonoscopy, flexible; with removal of tumor(s), polyp(s), or other lesion(s) by snare technique Diagnosis Code(s): --- Professional --- Z12.11, Encounter for screening for malignantneoplasm of colon D12.5, Benign neoplasm of sigmoid colon K64.9, Unspecified hemorrhoids CPT copyright 2020 [employer]. All rights reserved. The codes documented in this report are preliminary and upon catalyst operator gasoline reviewmay be revised to meet current compliance requirements. JUSTINA Grant DO 06/19/2024 11:17:00 AM This report has been signed electronically.Justina Grant DO Number of Addenda: 0 Note Initiated On: 06/19/2024 10:45 AM Scope Withdrawal Time: 0 hours 6 minutes 2 seconds Scope In: 11:06:26 AM Scope Out: 11:14:50 AM Endoscopy Department at [facility] - [address] [place] [phone] IMPRESSION: - One 6 mm polyp in [...] PM EDT Narrative 12/13/2022 5:[address] [facility] Diagnostic Imaging Department [address] [place] [id number] Patient: FLORENCIO ACE /Age/Sex: 1955 - 67 - F Unit#: [id number] Location/Status: SPDIMAM/REG CLI Mnemonic/[facility]ing [facility] Ordering Physician: JUDAH CHAN CNM [facility] Dexa Axial Skeleton - 12/13/22 - 1331 Report Status:Signed History: Low estrogen state due to menopause. Comparison: 11/21/20 Findings: Bone densitometry is performed utilizing dual energy x-ray absorptiometry (DXA) in the [employer] unit. The lumbar spine and proximal femora [...] 5.4 percent Hip 0.7 percent. IMPRESSION: Osteopenia. [id number] Dictating Physician: MEGAN WRAY MD Electronically Signed by: MEGAN WRAY MD Dic Date/Time: 12/13/221713 Sign date/Time: 12/13/221714 Procedure Note Megan Wray MD - 07/23/[address] [facility] Diagnostic Imaging Department [address] [place] [address] Patient: ACEFLORENCIO/Age/Sex: 1955 - 67 - F Unit#: [id number] Location/Status: [facility]/REG CLI Mnemonic/Ordering Site[facility] Ordering Physician: JUDAH CHAN CNM [facility] Dexa Axial Skeleton - 12/13/22 - 1332 Report Status:Signed History: Low estrogen state due to menopause. Comparison: 11/21/20 Findings: Bone densitometry is performed utilizing dual energy x-ray absorptiometry(DXA) in the [place] unit. The lumbar spine and proximal femora [...] Osteoporotic 5.4percent Hip 0.7 percent. IMPRESSION: Osteopenia. [id number] Dictating Physician: MEGAN WRAY MD Electronically Signed by: MEGAN WRAY MD Dic Date/Time: 12/13/221713 Sign date/Time: 12/13/221714 Judah BRAUN IMG BI PROCEDURES Final Resul t * Hepatitis C Screening (04/14/2019) [facility] Hepatitis C Screening abstracted Historical Provider HEALTH MAINTENANCE Final Result from Last 3 Months or Most Recently Relevant to Health Maintenance Insurance [facility] MEDICARE Member Subscriber Plan / Payer (Ef fective 2022-Present) Name:Florencio Ace Relation to Subscriber:Self Name:Florencio Ace Payer ID:[id number] Group ID:[id number] Type:Not on file Address: [facility] [address] [phone] Advance Directives Documents on File Type Date 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
== END 2025-05-27 15:43 | disposition home or self-care (01) ==
LOC: HO.HPHYS 14:44
PROVIDERS: PCP Internal Medicine; Visit Provider Physical Medicine & Rehabilitation
DX: M54.12 Radiculopathy, cervical region (principal); M54.2 Cervicalgia; M75.41 Impingement syndrome of right shoulder; M53.3 Sacrococcygeal disorders, not elsewhere classified; M46.1 Sacroiliitis, not elsewhere classified; M96.1 Postlaminectomy syndrome, not elsewhere classified; M54.16 Radiculopathy, lumbar region; G89.4 Chronic pain syndrome; Z79.891 Long term (current) use of opiate analgesic
CPT/HCPCS: 99214; G2211

== ENCOUNTER → 2025-05-27 14:44 | Outpatient (BNVA) | payer OTHER, SELFPAY | PROVIDERS: PCP Internal Medicine; Visit Provider Physical Medicine & Rehabilitation | DX: M54.12 Radiculopathy, cervical region (principal); M75.41 Impingement syndrome of right shoulder; M53.3 Sacrococcygeal disorders, not elsewhere classified; M46.1 Sacroiliitis, not elsewhere classified; M96.1 Postlaminectomy syndrome, not elsewhere classified; M54.16 Radiculopathy, lumbar region; G89.4 Chronic pain syndrome; Z79.891 Long term (current) use of opiate analgesic | CPT/HCPCS: 99212 ==